=== PATIENT | female | born 1955 | race African-American/Black ===

== ENCOUNTER 2017-06-24 09:29 | Outpatient (CLI) | payer MEDICARE ==
--- NOTE | 2017-06-24 15:08 | Mammography Report ---
BILATERAL DIGITAL SCREENING MAMMOGRAM with CAD: 06/24/17 09:29:00 CLINICAL: Routine screening. COMPARISON: 05/03/16 FINDINGS: There are bilateral scattered areas of fibroglandular density.No mass, architectural distortion or suspicious calcifications. IMPRESSION: No mammographic evidence of malignancy. BI-RADS CATEGORY: 1 -- Negative RECOMMENDATION: Routine mammographic screening in one year. COMMENT: Patient follow-up letters are generated by our [employer] application.
== END 2017-06-24 09:30 | disposition home or self-care (01) ==
LOC: MAMMO 09:29
PROVIDERS: ATTEND Family Medicine
DX: Z12.31 Encounter for screening mammogram for malignant neoplasm of breast (principal)
CPT/HCPCS: 77067; G0202

== ENCOUNTER 2017-11-28 07:02 | Outpatient (CLI) | payer MEDICARE ==
--- NOTE | 2017-11-28 09:23 | Magnetic Resonance Report ---
MR CERVICAL SPINE WITHOUT CONTRAST History: Transient cerebral ischemia, radiculopathy. Technique: Multisequence, multiplanar MRI without contrast. Findings: The cervical spinal cord is normal size and signal intensity throughout. No central canal stenosis. Normal height and alignment of the cervical vertebral bodies. Normal bone marrow signal. There is mild diffuse disc desiccation without significant disc narrowing and mild diffuse facet arthropathy. C2-3: No significant abnormality. C3-4: No significant abnormality. C4-5: No significant abnormality with the disc. There is mild to moderate facet arthropathy, left greater than right. There is mild to moderate left neural foraminal narrowing estimated at 50%. C5-6: No significant abnormality with the disc. Mild bilateral facet arthropathy. C6-7: No significant abnormality with the disc. Mild bilateral facet arthropathy. C7-T1: No significant abnormality. IMPRESSION: Mild multilevel cervical spondylosis as described above. No large bulging disc or central canal stenosis.
== END 2017-11-28 07:03 | disposition home or self-care (01) ==
LOC: MRI 07:02
PROVIDERS: ATTEND Family Medicine
DX: M48.02 Spinal stenosis, cervical region (principal); M47.892 Other spondylosis, cervical region; M12.88 Other specific arthropathies, not elsewhere classified, other specified site; G45.9 Transient cerebral ischemic attack, unspecified; R20.0 Anesthesia of skin; R20.2 Paresthesia of skin
CPT/HCPCS: 72141

== ENCOUNTER 2018-10-05 00:37 | Inpatient (IN) | payer MEDICARE ==
[2018-10-05] MEDS ORDERED: NACL 0.9% 1000 ML 1,000 ML IV ONE (01:03)
--- NOTE | 2018-10-05 01:07 | Emergency Department Report ---
HPI - General Chief Complaint: Fever Time Seen by Provider: 10/05/18 00:55 - HPI HPI: 63-year-old female presents to the emergency department from home, with her daughter at bedside helping with some translation, with a complaint of a 4 day history of intermittent fever, intermittent chest tightness, some body aches. She says that at first they thought it was the flu. She denies any headache, shortness of breath, palpitations, nausea, vomiting, diarrhea, dysuria, cough. She tried some [place]sh[place] cough and cold medication. She has a past medical history of hypertension and elevated cholesterol. She is not a tobacco smoker. No recent travel or sick contacts at home. Her primary care physician is a Dr. Espino. ED Past Medical Hx - Past Medical History Previous Medical History?: Yes Hx Hypertension: Yes Hx Congestive Heart Failure: No Hx Diabetes: No Hx Asthma: No Hx COPD: No Additional medical history: Hypercholesterolemia - Surgical History Hx Cholecystectomy: Yes Additional Surgical History: Lumbar disc surgery - Social History Smoking Status: Unknown if ever smoked Substance Use Type: None - Medications Home Medications: Home Medications Medication Instructions Recorded Confirmed Last Taken Type Rosuvastatin Calcium [Crestor] 1 tab PO DAILY 09/09/13 11/05/17 Unknown History Lisinopril/Hydrochlorothiazide 20 mg DAILY 09/10/13 11/05/17 09/09/13 History [Zestoretic 20-12.5 mg] Travoprost [Travatan Z 0.004%] 1 drops DAILY 09/10/13 11/05/17 09/10/13 History one Aspirin [Aspirin TAB] 325 mg PO QDAY #30 tablet 11/05/17 Unknown Rx ED Review of Systems ROS: Stated complaint: FEVER Other details as noted in HPI Comment: All other systems reviewed and negative Constitutional: fever. denies: weakness Eyes: denies: eye pain, vision change ENT: denies: ear pain, throat pain Respiratory: denies: cough, shortness of breath Cardiovascular: denies: palpitations, edema Gastrointestinal: denies: abdominal pain, vomiting Genitourinary: denies: dysuria, discharge Musculoskeletal: myalgia. denies: back pain Skin: denies: rash, lesions Neurological: denies: headache, weakness Physical Exam - Physical Exam Vital Signs: Vital Signs 10/05/18 00:48 Temperature 99.9 F H Pulse Rate 113 H Respiratory 14 Rate Blood Pressure 157/73 O2 Sat by Pulse 98 Oximetry Physical Exam: GENERAL: The patient is well-developed well-nourished. HEENT: Normocephalic. Atraumatic. Patient has moist mucous membranes. EYES: Extraocular motions are intact. Pupils are equal and reactive to light bilaterally. NECK: Supple. Trachea is midline. CHEST/LUNGS: Clear to auscultation. There is no respiratory distress noted. There is some reproducible left-sided chest pain to palpation. HEART/CARDIOVASCULAR: Regular. There is mild tachycardia. There is no obvious murmur. ABDOMEN: Abdomen is soft, nontender. Patient has normal bowel sounds. There is no abdominal distention. SKIN: Skin is warm and dry. NEURO: The patient is awake, alert, and oriented. The patient is cooperative. The patient has no focal neurologic deficits. The patient has normal speech. MUSCULOSKELETAL: There is some reproducible tenderness to palpation to the left lateral/posterior hip. Positive left straight leg raise test. There is no limitation range of motion. There is no evidence of acute injury. BACK: No midline thoracic or lumbar tenderness to palpation, step-off or deformity. ED Course Vital Signs 10/05/18 00:48 Temperature 99.9 F H Pulse Rate 113 H Respiratory 14 Rate Blood Pressure 157/73 O2 Sat by Pulse 98 Oximetry ED Medical Decision Making - Lab Data Result diagrams: 10/05/18 01:12 10/05/18 01:12 - EKG Data -: EKG Interpreted by Me EKG shows normal: sinus rhythm, axis, intervals, QRS complexes, ST-T waves Rate: tachycardia (103 bpm) - EKG Data When compared to previous EKG there are: previous EKG unavailable Interpretation: other (sinus tachycardia. No ST elevation [place]) - Radiology Data Radiology results: report reviewed, image reviewed interpreted by me: Chest x-ray does not show any pneumothorax, pleural effusion, pneumonia or obvious focal consolidation. X-ray of the left hip does not show any fracture, dislocation or any acute process. PROCEDURE: CT ANGIO CHEST TECHNIQUE: Computerized axial tomographic angiography of the chest and pulmonary arteries was performed after the IV injection of iodinated nonionic contrast. The image data was postprocessed using maximum intensity projection (MIP) and 2-dimensional multiplanar reformatted (MPR) techniques. The examination is specifically tailored to the evaluation of the pulmonary arteries per clinical request. HISTORY: Short of breath 786.09, chest pain 786.50, CP, elevated dimer COMPARISON: No prior studies are available for comparison. FINDINGS: Heart and pericardium: Normal. Thoracic aorta: There is no thoracic aortic aneurysm or dissection.. Pulmonary vasculature: There is no pulmonary embolism.. Lymph nodes: No enlarged thoracic lymph nodes. Lungs: Lungs are expanded. There are no infiltrates.. Pleural space: No effusion, thickening, or pneumothorax. Musculoskeletal structures: No significant abnormality. Upper abdominal structures: No significant abnormality. IMPRESSION: There is no pulmonary embolism.. Transcribed By: CO Dictated By: ASHUTOSH BARCENAS MD Electronically Authenticated By: ASHUTOSH BARCENAS MD Signed Date/Time: 10/05/18321 - Medical Decision Making This patient presents with a four-day history of some left-sided chest tightness, left hip pain, intermittent fevers and some tachycardia. She has a past medical history of hypertension and hyperlipidemia. EKG does not show any signs of ST elevation WI. Chest x-ray does not show any focal consolidation, pneumothorax, pleural effusions, pneumonia, or any other acute process. X-ray of the left hip also does not show any fracture, dislocation or any acute proces s. Patient's abdomen mostly unremarkable thus far including a negative troponin. She did have an elevated and equivocal d-dimer. For this reason a CT angiography of the chest was done that did not show any pulmonary embolism. Patient was given IV fluid resuscitation that did help with the tachycardia. However since the patient continues to have some left-sided chest tightness, and she has not had a full cardiac workup before, she will be admitted to the hospital for further evaluation and treatment. The patient was accepted for admission by the hospitalist, Dr. Queen. - Differential Diagnosis WI, PE, hyperthyroidism, sciatica Critical Care Time: No Critical care attestation.: If time is entered above; I have spent that time in minutes in the direct care of this critically ill patient, excluding procedure time. ED Disposition Clinical Impression: Acute chest pain, Left hip pain Hypertension Qualifiers: Hypertension type: essential hypertension Qualified Code(s): I10 - Essential (primary) hypertension Disposition: OP ADMIT IP TO THIS HOSP Is pt being admited?: Yes Condition: Stable Instructions: Chest Pain (ED), Hypertension (ED) Referrals: MAUDE LYON MD [Primary Care Provider] - 3-5 Days Time of Disposition: 04:53
[2018-10-05 01:36] LABS: Bilirubin,Urine NEG (Negative); Blood,Urine NEG (Negative); Color,Urine Yellow (Yellow); Mucus,Urine FEW /HPF; Protein,Urine <15 mg/dL mg/dL (Negative); Urobilinogen,Urine < 2.0 mg/dL (<2.0)
[2018-10-05 01:50] LABS: Basophils % (Auto) 0.2 % (0.0-1.8); Eosinophils % (Auto) 0.1 % (0.0-4.3); Hematocrit 40.4 % (30.3-42.9); Hemoglobin 13.6 gm/dl (10.1-14.3); Lymphocytes # (Auto) 1.5 K/mm3 (1.2-5.4); Lymphocytes % (Auto) 14.8 % (13.4-35.0); Mean Corpuscular HGB Conc 34 % (30-34); Mean Corpuscular Volume 87 fl (79-97); Monocytes # (Auto) 0.7 K/mm3 (0.0-0.8); Platelet Count 244 K/mm3 (140-440); Red Blood Count 4.62 M/mm3 (3.65-5.03); Red Cell Distribution Width 12.6 % (13.2-15.2)
[2018-10-05 01:59] LABS: Albumin 3.6 g/dL (3.9-5); BUN/Creatinine Ratio 12; Blood Urea Nitrogen 6 mg/dL (7-17); Calcium 8.9 mg/dL (8.4-10.2); Hemolysis Index 333
--- NOTE | 2018-10-05 01:59 | XRay Report ---
FINAL REPORT PROCEDURE: XR CHEST ROUTINE 2V TECHNIQUE: PA and lateral chest radiographs were obtained. CPT 27976 HISTORY: Chest Pain COMPARISON: No prior studies are available for comparison. FINDINGS: Heart: Normal. Mediastinum/Vessels: Normal. Lungs/Pleural space: Normal. Bony thorax: No acute osseous abnormality. Other: IMPRESSION: Normal examination.
[2018-10-05 02:03] LABS: Alanine Aminotransferase 90 units/L (7-56)
--- NOTE | 2018-10-05 02:33 | XRay Report ---
FINAL REPORT PROCEDURE: XR HIP 2-3V LT TECHNIQUE: LEFT hip radiographs, AP and lateral views. HISTORY: left hip pain COMPARISON: No prior studies are available for comparison. FINDINGS: Fracture (s) and/or Dislocation(s): None . Joint space(s): Normal . Soft tissues: Normal . Bone mineralization: Normal . Foreign bodies: None . IMPRESSION: Normal Examination.
--- NOTE | 2018-10-05 03:22 | Cat Scan Report ---
FINAL REPORT PROCEDURE: CT ANGIO CHEST TECHNIQUE: Computerized axial tomographic angiography of the chest and pulmonary arteries was perfor med after the IV injection of iodinated nonionic contrast. The image data was postprocessed using max imum intensity projection (MIP) and 2-dimensional multiplanar reformatted (MPR) techniques. The exami nation is specifically tailored to the evaluation of the pulmonary arteries per clinical request. HISTORY: Short of breath 786.09, chest pain 786.50, CP, elevated dimer COMPARISON: No prior studies are available for comparison. FINDINGS: Heart and pericardium: Normal. Thoracic aorta: There is no thoracic aortic aneurysm or dissection.. Pulmonary vasculature: There is no pulmonary embolism.. Lymph nodes: No enlarged thoracic lymph nodes. Lungs: Lungs are expanded. There are no infiltrates.. Pleural space: No effusion, thickening, or pneumothorax. Musculoskeletal structures: No significant abnormality. Upper abdominal structures: No significant abnormality. IMPRESSION: There is no pulmonary embolism..
[2018-10-05] MEDS ORDERED: KIONEX PO ONE (04:22)
[2018-10-05] MEDS ORDERED: ZOFRAN IV PRN (05:56)
[2018-10-05] MEDS ORDERED: NITROSTAT SL PRN (05:59)
[2018-10-05] MEDS: NITRO-BID 2% TP SCH ×4 (06:40→17:38)
[2018-10-05 06:47] LABS: Creatine Kinase MB < 1.0 ng/mL (0.0-4.0)
--- NOTE | 2018-10-05 07:37 | History and Physical Report ---
CHIEF COMPLAINT: Chest pain. OTHER COMPLAINT: Includes fever. HISTORY OF PRESENTING ILLNESS: The patient is a 63-year-old female who has been having tightness in the chest going on for over 4 days. There is history of associated fever and tachycardia. The patient said initially she thought she was having flu. There was no history of headache. No history of shortness of breath, palpitation, nausea or vomiting. Also, the patient denied history of abdominal pain ,diarrhea and cough. She states she took some [place]sh[place], cough and cold medication, but continued to have tightness in the chest and presented for further evaluation. PAST MEDICAL HISTORY: Pertinent for hypertension. Also, the patient has past history of hypercholesterolemia. PAST SURGICAL HISTORY: Pertinent for cholecystectomy and lumbar disk surgery. FAMILY HISTORY: Family history is noncontributory. SOCIAL HISTORY: The patient does not smoke, does not drink alcohol and does not use illicit drugs. MEDICATIONS: The patient is on Crestor one tablet by mouth daily, dose unknown. Also, the patient is on lisinopril/hydrochlorothiazide 20/12.5 mg one by mouth daily and travoprost eye drop 0.004% one drop daily. The particular eye is not known. The patient is also on aspirin 325 mg by mouth daily. ALLERGIES: There are no known drug allergies. REVIEW OF SYSTEMS: CONSTITUTIONAL: There is fever, but no chills, no diaphoresis. HEENT: There is no headache or sore throat. CARDIOVASCULAR SYSTEM: Chest pain is present. No orthopnea. RESPIRATORY SYSTEM: There is no shortness of breath or cough. GASTROINTESTINAL SYSTEM: There is no nausea, no vomiting, no diarrhea or constipation. NEUROLOGICAL SYSTEM: There is no numbness, no dizziness, no altered mental status. MUSCULOSKELETAL SYSTEM: Back pain is noted, no joint swelling. DERMATOLOGICAL SYSTEM: There is no skin rash or itching. GENITOURINARY SYSTEM: There is no dysuria, hematuria or flank pain. Rest of system review is normal. PHYSICAL EXAMINATION: GENERAL: At the time of exam, the patient was found to be alert, oriented x 3 and not in acute distress. VITAL SIGNS: At the initial time of presentation show temperature of 99.9 degrees Fahrenheit, pulse of 113, respiration 14, blood pressure 157/73, O2 sat of 98% on room air. HEENT: Showed pupils to be equal, round, reactive to light and accommodating. Extraocular muscles are intact. NECK: Neck is supple with no JVD or carotid bruit. CARDIOVASCULAR SYSTEM: Showed normal first and second heart sounds with no gallops or murmur. RESPIRATORY SYSTEM: Show good air entry on both sides of the lung with no abnormal breath sounds. GASTROINTESTINAL SYSTEM: Show abdomen to be full, soft, nontender with no organomegaly or rigidity. NEUROLOGICAL: Neuro exam shows no focal deficit. MUSCULOSKELETAL SYSTEM: Show no joint swelling or tenderness. DERMATOLOGICAL SYSTEM: Show no skin rash. GENITOURINARY SYSTEM: Showing no costovertebral angle tenderness. PERTINENT LABORATORY DATA AND IMAGING STUDIES: The patient had chest x-ray done that shows no acute cardiopulmonary lesion. Also the patient had x-ray of the hip done that shows normal examination. The patient had CT angiogram of the chest done because of elevated D-dimer with chest pain that shows no pulmonary embolism. The patient's lab results shows unremarkable CBC except for elevated segmented neutrophil of 77.9% on CBC differential. The patient's D-dimer is high with a value of 693.[address] angiogram order and the patient's chemistry showed low sodium of 133 with elevated potassium level of 5.4 and low chloride level of 96.9 with liver transaminases showing elevated AST of 97 with elevated ALT of 90. The rest of the patient's chemistry was unremarkable and troponin level came back unremarkable. Urinalysis was unremarkable. DIAGNOSES: 1. Chest pain, rule out myocardial infarction. 2. Hyperkalemia. PLAN OF CARE: 1. The patient will be admitted to telemetry. 2. The patient will have cardiac enzymes involving troponin, total CK and CK-MB check q. 6 hours x2 more levels. 3. The patient will be n.p.o. for Lexiscan stress test this morning. 4. The patient will have basic metabolic panel check sometime this morning to monitor the treatment for potassium that was done in the Emergency Room. 5. The patient will be on aspirin 325 mg by mouth daily and will be on Tylenol 650 mg by mouth every 4 hours for fever and headache. 6. The patient will be on heparin 5000 units subQ q. 12 hours. 7. The patient will be on morphine 2 mg IV every 3 hours as needed for pain. 8. The patient will be on nitroglycerin paste half-inch to anterior chest wall q.i.d. and Nitrostat 0.4 mg every 5 minutes as needed for breakthrough chest pain. 9. The patient will be on Zofran 4 mg IV every 8 hours as needed for nausea and vomiting. 10. The patient will be on oxygen via nasal cannula 2L per minute. JOB# [id number] OCN/NTS MTDD
[2018-10-05 08:13] LABS: BUN/Creatinine Ratio 13; Blood Urea Nitrogen 5 mg/dL (7-17); Calcium 8.5 mg/dL (8.4-10.2); Hemolysis Index 3
--- NOTE | 2018-10-05 09:32 | Event Note ---
Date: 10/05/18 Patient presents with chest pain. I have seen and examined her. For stress test tomorrow.
[2018-10-05] MEDS: ASPIRIN PO SCH (12:02)
[2018-10-05] MEDS: HEPARIN SUB-Q SCH ×2 (12:03→21:38)
[2018-10-05 14:29] LABS: Creatine Kinase MB 2.7 ng/mL (0.0-4.0)
[2018-10-05] MEDS: MORPHINE IV PRN (21:37)
[2018-10-06 06:04] LABS: Alanine Aminotransferase 52 units/L (7-56); Albumin 3.4 g/dL (3.9-5); BUN/Creatinine Ratio 16; Blood Urea Nitrogen 8 mg/dL (7-17); Calcium 8.3 mg/dL (8.4-10.2); Hemolysis Index 6
[2018-10-06] MEDS: NITRO-BID 2% TP SCH ×4 (06:07→17:21)
[2018-10-06] MEDS ORDERED: LEXISCAN IV ONE ×2 (09:28→09:29)
[2018-10-06] MEDS ORDERED: NACL 0.9% 500 ML 500 ML ONE (11:08)
[2018-10-06] MEDS: ASPIRIN PO SCH (11:22)
[2018-10-06] MEDS: KCL 10MEQ/100ML 10 MEQ/100 ML BAG IV SCH ×2 (11:22→13:19)
[2018-10-06] MEDS: HEPARIN SUB-Q SCH ×2 (11:23→22:20)
[2018-10-06] MEDS ORDERED: NON-FORMULARY (Lisinopril/Hydrochlorothiazide [Zestoretic 20-12.5 Mg] 20 MG) PO SCH (12:30)
[2018-10-06] MEDS ORDERED: ROSUVASTATIN CALCIUM PO SCH (12:30)
--- NOTE | 2018-10-06 12:50 | Progress Note ---
Assessment and Plan Assessment and plan: Chest pain, Now resolved Stress test neg Fever. UA neg, CXR neg Obtain Blood cultures Hold off Antibiotcs If fever persists will start Antibiotics Hypertension. Monitor BP Hyperlipidemia Dispo:Poss dc in am, if no more fever. History Interval history: Chest pain resolved Fever of 100.1 Hospitalist Physical - Physical exam Narrative exam: EN: Not in acute distress, lying in bed HEENT: Normocephalic, atraumatic, Neck: supple, No JVD Lungs: Clear to auscultation, bilaterally, Heart:S1 and S2 regular, no murmurs, rubs or gallop, Abd:soft, non tender, non distended, normal bowel sounds Ext: No edema, no clubbing or cyanosis Neuro: Awake,alert, oriented x 3, No focal signs - Constitutional Vitals: Temp Pulse Resp BP Pulse Ox 100.1 F H 85 18 154/80 95 10/06/18 11:59 10/06/18 11:59 10/06/18 11:59 10/06/18 11:59 10/06/18 11:59 Results - Labs CBC & Chem 7: 10/05/18 01:12 10/06/18 05:10 Labs: Laboratory Last Values WBC 10.3 K/mm3 (4.5-11.0) 10/05/18 01:12 RBC 4.62 M/mm3 (3.65-5.03) 10/05/18 01:12 Hgb 13.6 gm/dl (10.1-14.3) 10/05/18 01:12 Hct 40.4 % (30.3-42.9) 10/05/18 01:12 MCV 87 fl (79-97) 10/05/18 01:12 MCH 30 pg (28-32) 10/05/18 01:12 MCHC 34 % (30-34) 10/05/18 01:12 RDW 12.6 % (13.2-15.2) L 10/05/18 01:12 Plt Count 244 K/mm3 (140-440) 10/05/18 01:12 Lymph % (Auto) 14.8 % (13.4-35.0) 10/05/18 01:12 [place] % (Auto) 7.0 % (0.0-7.3) 10/05/18 01:12 Eos % (Auto) 0.1 % (0.0-4.3) 10/05/18 01:12 Baso % (Auto) 0.2 % (0.0-1.8) 10/05/18 01:12 Lymph # 1.5 K/mm3 (1.2-5.4) 10/05/18 01:12 [place] # 0.7 K/mm3 (0.0-0.8) 10/05/18 01:12 Eos # 0.0 K/mm3 (0.0-0.4) 10/05/18 01:12 Baso # 0.0 K/mm3 (0.0-0.1) 10/05/18 01:12 Seg Neutrophils % 77.9 % (40.0-70.0) H 10/05/18 01:12 Seg Neutrophils # 8.0 K/mm3 (1.8-7.7) H 10/05/18 01:12 D-Dimer 693.81 ng/mlDDU (0-234) H 10/05/18 01:12 Sodium 137 mmol/L (137-145) 10/06/18 05:10 Potassium 3.1 mmol/L (3.6-5.0) L 10/06/18 05:10 Chloride 99.4 mmol/L (98-107) 10/06/18 05:10 Carbon Dioxide 26 mmol/L (22-30) 10/06/18 05:10 Anion Gap 15 mmol/L 10/06/18 05:10 BUN 8 mg/dL (7-17) 10/06/18 05:10 Creatinine 0.5 mg/dL (0.7-1.2) L 10/06/18 05:10 Estimated GFR > 60 ml/min 10/06/18 05:10 BUN/Creatinine Ratio 16 % 10/06/18 05:10 Glucose 108 mg/dL (65-100) H 10/06/18 05:10 Lactic Acid 0.90 mmol/L (0.7-2.0) 10/05/18 01:12 Calcium 8.3 mg/dL (8.4-10.2) L 10/06/18 05:10 Total Bilirubin 0.70 mg/dL (0.1-1.2) 10/06/18 05:10 AST 32 units/L (5-40) 10/06/18 05:10 ALT 52 units/L (7-56) 10/06/18 05:10 Alkaline Phosphatase 94 units/L (35-129) 10/06/18 05:10 Total Creatine Kinase 162 units/L (30-135) H 10/05/18 13:23 CK-MB (CK-2) 2.7 ng/mL (0.0-4.0) 10/05/18 13:23 CK-MB (CK-2) Rel Index 1.6 (0-4) 10/05/18 13:23 Troponin T < 0.010 ng/mL (0.00-0.029) 10/05/18 13:23 Total Protein 6.9 g/dL (6.3-8.2) 10/06/18 05:10 Albumin 3.4 g/dL (3.9-5) L 10/06/18 05:10 Albumin/Globulin Ratio 1.0 % 10/06/18 05:10 TSH 0.591 mlU/mL (0.270-4.200) 10/05/18 01:12 Urine Color Yellow (Yellow) 10/05/18 01:03 Urine Turbidity Clear (Clear) 10/05/18 01:03 Urine pH 6.0 (5.0-7.0) 10/05/18 01:03 Ur Specific [place] 1.004 (1.003-1.030) 10/05/18 01:03 Urine Protein <15 mg/dl mg/dL (Negative) 10/05/18 01:03 Urine Glucose (UA) Neg mg/dL (Negative) 10/05/18 01:03 Urine Ketones 20 mg/dL (Negative) 10/05/18 01:03 Urine Blood Neg (Negative) 10/05/18 01:03 Urine Nitrite Neg (Negative) 10/05/18 01:03 Urine Bilirubin Neg (Negative) 10/05/18 01:03 Urine Urobilinogen < 2.0 mg/dL (<2.0) 10/05/18 01:03 Ur Leukocyte Esterase Neg (Negative) 10/05/18 01:03 Urine WBC (Auto) 1.0 /HPF (0.0-6.0) 10/05/18 01:03 Urine RBC (Auto) 1.0 /HPF (0.0-6.0) 10/05/18 01:03 Urine Mucus Few /HPF 10/05/18 01:03 Blood Type B POSITIVE 10/05/18 01:12 Antibody Screen Negative 10/05/18 01:12
[2018-10-06] MEDS ORDERED: ASPIRIN PO SCH (13:00)
[2018-10-06] MEDS: ZESTRIL PO SCH (16:41)
[2018-10-06] MEDS: HCTZ PO SCH (16:41)
--- NOTE | 2018-10-06 20:04 | Treadmill Report ---
SINGLE ISOTOPE DUAL STUDY MYOCARDIAL PERFUSION SCAN REPORT REFERRING PHYSICIAN: Amol Queen MD Se[facility] and [facility] DESCRIPTION OF THE PROCEDURE: The patient received 10 mCi of technetium 99m Myoview intravenously under resting conditions. Resting myocardial perfusion scan was done. Subsequently, the patient underwent Lexiscan stress test as per the protocol. During Lexiscan stress, the patient received 28 mCi of technetium 99m Myoview intravenously. After 30-60 minutes, post stress images were done. Computerized reconstruction images were performed for analysis. The post-stress images did not reveal any perfusion abnormality. Cinematic display of the gated study revealed hyperdynamic left ventricle with ejection fraction of 83%. The resting images were also normal. CONCLUSION: 1. No perfusion abnormality of the left ventricular myocardium was demonstrated in the resting as well as stress images obtained after the patient underwent Lexiscan stress test. 2. No wall motion abnormality. 3. Hyperdynamic left ventricle with left ventricular ejection fraction of 83%. JOB# [id number] [facility]
[2018-10-07] MEDS: MORPHINE IV PRN (05:09)
[2018-10-07] MEDS: NITRO-BID 2% TP SCH ×3 (05:12→14:33)
[2018-10-07 07:11] LABS: BUN/Creatinine Ratio 14; Blood Urea Nitrogen 7 mg/dL (7-17); Calcium 8.7 mg/dL (8.4-10.2); Hemolysis Index 13
[2018-10-07] MEDS: HCTZ PO SCH (09:20)
[2018-10-07] MEDS: TYLENOL PO PRN ×2 (09:20→17:32)
[2018-10-07] MEDS: ASPIRIN PO SCH (09:22)
[2018-10-07] MEDS: HEPARIN SUB-Q SCH ×2 (09:22→21:29)
[2018-10-07] MEDS: ZESTRIL PO SCH (09:23)
--- NOTE | 2018-10-07 16:11 | Consultation ---
History of Present Illness - Reason for Consult Consult date: 10/07/18 fever Requesting physician: CHIQUI TERRY - History of Present Illness 63 y/o female w/o medical history admitted on 10/05/2018 due to 4-day history of intermittent fever, chills, intermittent chest tightness, malaise and 2-day history of right knee edema and tenderness. Patient denies any recent falls or injury. She stays home. Denies sick contacts. She denies any headache, shortness of breath, palpitations, nausea, vomiting, diarrhea, dysuria, cough. No recent travel. Patient is originally from [place], came to [facility] in 1993. Denies tob, ETOH or drugs. In the ED, temp 99.9--> 100.1, HR 113, R 14, BP 157/73, O2 sat 98%. WBC 10.3. Hg 13.6. Plat 244. K 5.4. Creat 0.4. Lactate 0.9. AST 97. ALT 90. UA negative. CTA negative for PE. CXR neg. Blood culture 11/01/2018 negative so far. Urine culture 10/05/2018 <10k. Review of Systems: General: + fever, + chills, nightsweats, unintentional weight change, or change in appetite, +poor appetite Cutaneous: no rash, pruritus Head: no headaches or injury Eyes: no changes in vision, eye pain, double vision Ears: no ear pain, ear discharge, ringing or hearing loss Nose: no nose bleeding, stuffiness Mouth & throat: no bleeding gums, no horseness, no dental problems, or swollen glands Neck: no pain, node enlargement/lumps, tyroid enlargement or tenderness Respiratory: no cough, wheezing, sputum, hemoptysis, pleuritic chest pain Cardiovascular: no chest pain, leg edema, cyanosis, FLORES, orthopnea Musculoskeletal: no decreased joint motion, muscle aches, +right knee edema, tenderness Gastrointestinal: no nausea, vomiting, hematemesis, diarrhea, constipation, melena, bright red blood in stools, fecal incontinence, jaundice Genitourinary/Reproductive: no frequent urination, dysuria, hematuria, incontinence Neurogical: no seizures, no headaches, no weakness, no paresthesias, no loss of speech or vision; no memory loss, no vertigo, no tremors, no numbness Psychiatric: stable mood; no excessive anxiety, sadness or moodiness Past History Past Surgical History: No surgical history Social history: lives with family. denies: smoking, IV drug use Family history: no significant family history Medications and Allergies Allergies Allergy/AdvReac Type Severity Reaction Status Date / Time No Known Allergies Allergy Unverified 09/09/13 16:03 Home Medications Medication Instructions Recorded Confirmed Last Taken Type Rosuvastatin Calcium [Crestor] 1 tab PO DAILY 09/09/13 10/05/18 Unknown History Lisinopril/Hydrochlorothiazide 20 mg DAILY 09/10/13 10/05/18 09/09/13 History [Zestoretic 20-12.5 mg] Travoprost [Travatan Z 0.004%] 1 drops DAILY 09/10/13 10/05/18 09/10/13 History one Aspirin [Aspirin TAB] 325 mg PO QDAY #30 tablet 11/05/17 10/05/18 Unknown Rx Active Meds: Active Medications Acetaminophen (Tylenol) 650 mg PO Q4H PRN PRN Reason: Headache Last Admin: 10/07/18 09:20 Dose: 650 mg Documented by: Aspirin (Aspirin) 325 mg PO QDAY [facility] Last Admin: 10/07/18 09:22 Dose: 325 mg Documented by: Atorvastatin Calcium (Lipitor) 40 mg PO QHS [facility] Last Admin: 10/06/18 22:19 Dose: 40 mg Documented by: Heparin Sodium (Porcine) (Heparin) 5,000 unit SUB-Q Q12HR [facility] Last Admin: 10/07/18 09:22 Dose: 5,000 unit Documented by: Hydrochlorothiazide (Hctz) 12.5 mg PO QDAY [facility] Last Admin: 10/07/18 09:20 Dose: 12.5 mg Documented by: Ceftriaxone Sodium (Rocephin/Ns 1 Gm/50 Ml) 1 gm in 50 mls @ 100 mls/hr IV Q24HR [facility]; Protocol Lisinopril (Zestril) 20 mg PO QDAY [facility] Last Admin: 10/07/18 09:23 Dose: 20 mg Documented by: Morphine Sulfate (Morphine) 2 mg IV Q3H PRN PRN Reason: Pain, Moderate (4-6) Last Admin: 10/07/18 05:09 Dose: 2 mg Documented by: Nitroglycerin (Nitrostat) 0.4 mg SL .Q5MIN PRN PRN Reason: Chest Pain Nitroglycerin (Nitro-Bid 2%) 0.5 inch TP QIDNTG [facility]; Protocol Last Admin: 10/07/18 09:22 Dose: 0.5 inch Documented by: Ondansetron HCl (Zofran) 4 mg IV Q8H PRN PRN Reason: Nausea And Vomiting Physical Examination - Physical Exam Narrative exam: General appearance: Alert in NAD, conversant, anxious Eyes: anicteric sclerae, moist conjunctivae; no lid-lag; PERRLA HENT: Atraumatic; oropharynx clear with moist mucous membranes and no mucosal ulcerations/no oral thrush; normal hard and soft palate. Normal external ears. Neck: Trachea midline; supple, no thyromegaly or lymphadenopathy Lungs: CTA, with normal respiratory effort and no intercostal retractions CV: RRR, no murmurs Abdomen: Soft, non-tender; no masses or hepatosplenomegaly Extremities: +right knee edema, tenderness and heat Skin: Normal temperature, turgor and texture; no rash, ulcers or subcutaneous nodules Psych: Appropriate affect, alert and oriented to person, place and time. Neuro: alert and oriented x 3. Moving all extermities - Constitutional Vitals: Vital Signs Temp Pulse Resp BP Pulse Ox 102.7 F H 100 H 18 144/67 91 10/07/18 08:49 10/07/18 08:49 10/07/18 08:49 10/07/18 08:49 10/07/18 08:49 Temperature -Last 24 Hours Temperature 102.7 F Temperature 100.6 F Temperature 99.0 F Temperature 99.4 F Temperature 99.1 F Results - Labs CBC & Chem 7: 10/05/18 01:12 10/07/18 06:17 Labs: Abnormal lab results 10/07/18 Range/Units 06:17 Potassium 3.4 L (3.6-5.0) mmol/L Creatinine 0.5 L (0.7-1.2) mg/dL Glucose 130 H (65-100) mg/dL Assessment and Plan Cultures: Blood culture Urine culture Sputum culture Assessment: 63 y/o female w/o medical history admitted on 10/05/2018 due to 4-day history of intermittent fever, chills, intermittent chest tightness, malaise and 2-day history of right knee edema and tenderness: 1) SIRS versus Sepsis: Present on admission, manifested by fever, tachycardia. Unclear etiology, likely right knee septic arthritis. Other possibilities influenza, mononucleosis, viral hepatitis. - UA negative. CTA negative for PE. CXR neg. Blood culture 11/01/2018 negative so far. Urine culture 10/05/2018 <10k. 2) Right knee edema and pain associated with fever: should r/o septic arthritis, others inflammatory arthritis, gout. 3) Elevated LFTs: from sepsis or secondary to viral infection. Other cholecystitis (denies abdominal pain) Recommendations: - right knee XR - Ortho consult may need knee aspiration, send fluid for cell count, diff, crystals and culture - Liver US - Viral hepatitis panel - EBV panel / CMV panel - follow-up blood cultures - obtain C-reactive protein (CRP), uric acid. - check influenza rapid antigen - continue ceftriaxone for now - add vancomycin until septic arthritis is r/o - add tamiflu until flu is r/o Will follow. Salma Roach MD Infectious Diseases [employer] [facility] [phone] O [phone]
[2018-10-07] MEDS ORDERED: .VANCOMYCIN VIAL 1,000 MG in NACL 0.9% 100 ML IV SCH (17:00)
[2018-10-07] MEDS ORDERED: VANCOMYCIN/NS 1 GM/250 ML 1 GM/250 ML BAG IV ONE (17:00)
--- NOTE | 2018-10-07 17:13 | XRay Report ---
FINAL REPORT EXAM: XR KNEE 3V RT HISTORY: severe right knee pain and edema eval for effusion TECHNIQUE: Three views of the right knee PRIORS: None. FINDINGS: There is large joint effusion present at the suprapatellar joint space. Skeletal structures are osteo penic. No acute fracture is identified. There are degenerative changes at the patellofemoral joint wi th joint space narrowing and marginal osteophytes IMPRESSION: Large joint effusion Osteopenia Degenerative changes at the patellofemoral joint
[2018-10-07] MEDS: ROCEPHIN/NS 1 GM/50 ML 1 GM/50 ML BAG IV SCH (17:34)
[2018-10-07 18:13] LABS: Hepatitis B Surface Antigen Non-Reactive (Negative); Hepatitis C Virus Antibody Non-Reactive (NonReactive)
[2018-10-07] MEDS: TAMIFLU PO SCH (21:30)
[2018-10-08] MEDS: TYLENOL PO PRN ×2 (06:41→22:16)
[2018-10-08] MEDS: NITRO-BID 2% TP SCH ×6 (06:41→20:13)
--- NOTE | 2018-10-08 08:52 | Ultrasound Report ---
ULTRASOUND ABDOMEN LIMITED: TECHNIQUE: Transabdominal ultrasound with color Doppler interrogation. HISTORY: Right upper quadrant pain, evaluate for cholecystitis. COMPARISON: CTA chest dated 10/05/18. FINDINGS: LIVER: Normal. BILIARY SYSTEM: The gallbladder is not identified on ultrasound or CTA chest. This presumably represents previous cholecystectomy. Otherwise, the gallbladder is contracted. The CBD measures 3.8 mm. PANCREAS: Normal. RIGHT KIDNEY: Normal. PROXIMAL AORTA: Normal. ASCITES: None. Trace right pleural effusion is noted. IMPRESSION: The gallbladder is not identified as described. Assumed cholecystectomy. No biliary dilatation is appreciated Trace right pleural effusion.
[2018-10-08] MEDS: ROCEPHIN/NS 1 GM/50 ML 1 GM/50 ML BAG IV SCH (10:27)
[2018-10-08] MEDS: HCTZ PO SCH (10:28)
[2018-10-08] MEDS: ZESTRIL PO SCH (10:29)
[2018-10-08] MEDS: ASPIRIN PO SCH (10:29)
[2018-10-08] MEDS: TAMIFLU PO SCH ×2 (10:29→22:17)
[2018-10-08] MEDS: HEPARIN SUB-Q SCH ×2 (10:31→22:17)
--- NOTE | 2018-10-08 11:00 | Progress Note ---
Assessment and Plan Cultures: Blood culture 10/06/2018 no growth so far Urine culture 10/05/2018 <10 mixed Assessment: 63 y/o female w/o medical history admitted on 10/05/2018 due to 4-day history of intermittent fever, chills, intermittent chest tightness, malaise and 2-day history of right knee edema and tenderness: 1) Sepsis: still high fever. Likely right knee septic arthritis. Other possibilities influenza - UA negative. CTA negative for PE. CXR neg. Blood culture 11/01/2018 negative so far. Urine culture 10/05/2018 <10k. 2) Right knee edema and pain associated with fever: most likely septic arthriti s, less likely inflammatory arthritis, gout. - Right XR showed large effusion - CRP 12 - Uric acid low 3) Elevated LFTs: resolved; from sepsis or secondary to viral infection. Other cholecystitis (denies abdominal pain). Resolved. US showed GB absent no dilation. Viral hep panel non reactive. Recommendations: - Ortho consult for aspiration of right knee, please send synovial fluid for cell count, diff, crystals, Gram stain and culture. I personally alerted Micro lab and they received specimen. - follow-up blood cultures - check influenza rapid antigen - pending - continue ceftriaxone and vancomycin until septic arthritis is r/o Will follow. Salma Roach MD Infectious Diseases [employer] [facility] M [phone] O [phone] Subjective Date of service: 10/08/18 Principal diagnosis: fever Interval history: Patient feels the same still c/o severe right knee pain, + fever 103 Review of Systems: General: + fever, +chills, nightsweats, unintentional weight change, or change in appetite Cutaneous: no rash, pruritus Musculoskeletal: +right knee edema pain Gastrointestinal: no nausea, vomiting, hematemesis, diarrhea, constipation, melena, bright red blood in stools, fecal incontinence, jaundice Objective - Exam Narrative Exam: General appearance: Alert in NAD, conversant, anxious Eyes: anicteric sclerae, moist conjunctivae; no lid-lag; PERRLA HENT: Atraumatic; oropharynx clear with moist mucous membranes and no mucosal ulcerations/no oral thrush; normal hard and soft palate. Normal external ears. Neck: Trachea midline; supple, no thyromegaly or lymphadenopathy Lungs: CTA, with normal respiratory effort and no intercostal retractions CV: RRR, no murmurs Abdomen: Soft, non-tender; no masses or hepatosplenomegaly Extremities: +right knee edema, tenderness and heat Skin: Normal temperature, turgor and texture; no rash, ulcers or subcutaneous nodules Psych: Appropriate affect, alert and oriented to person, place and time. Neuro: alert and oriented x 3. Moving all extermities - Constitutional Vitals: Vital Signs Temp Pulse Resp BP Pulse Ox 98.2 F 76 18 122/58 96 10/08/18 09:44 10/08/18 10:48 10/08/18 09:43 10/08/18 10:48 10/08/18 09:43 Temperature -Last 24 Hours Temperature 98.2 F Temperature 100.3 F Temperature 98.4 F Temperature 99.1 F Temperature 103.0 F Temperature 101.0 F Temperature 99.0 F - Labs CBC & Chem 7: 10/05/18 01:12 10/07/18 06:17 Labs: Abnormal lab results 10/07/18 10/07/18 Range/Units 17:12 17:12 Uric Acid 3.3 L (3.5-7.6) mg/dL C-Reactive Protein 12.80 H (0.00-1.30) mg/dL
--- NOTE | 2018-10-08 12:18 | Consultation ---
History of Present Illness - [facility] Consult date: 10/08/18 Consult reason: joint pain History of present illness: 63-year-old female who complains of right knee pain and swelling for the past 1 week she denies a history of trauma states the pain came on gradually got worse over time patient states it difficult to bear weight on the right leg.Patient does have a history of previous left knee pain and swelling for which she underwent some type of aspiration and injection a year ago in [place] Past History Past Surgical History: No surgical history Social history: lives with family. denies: smoking, IV drug use Family history: no significant family history Medications and Allergies Allergies Allergy/AdvReac Type Severity Reaction Status Date / Time No Known Allergies Allergy Unverified 09/09/13 16:03 Home Medications Medication Instructions Recorded Confirmed Last Taken Type Rosuvastatin Calcium [Crestor] 1 tab PO DAILY 09/09/13 10/05/18 Unknown History Lisinopril/Hydrochlorothiazide 20 mg DAILY 09/10/13 10/05/18 09/09/13 History [Zestoretic 20-12.5 mg] Travoprost [Travatan Z 0.004%] 1 drops DAILY 09/10/13 10/05/18 09/10/13 History one Aspirin [Aspirin TAB] 325 mg PO QDAY #30 tablet 11/05/17 10/05/18 Unknown Rx Active Meds: Active Medications Acetaminophen (Tylenol) 650 mg PO Q4H PRN PRN Reason: Headache Last Admin: 10/08/18 06:41 Dose: 650 mg Documented by: Aspirin (Aspirin) 325 mg PO QDAY [facility] Last Admin: 10/08/18 10:29 Dose: 325 mg Documented by: Atorvastatin Calcium (Lipitor) 40 mg PO QHS [facility] Last Admin: 10/07/18 21:30 Dose: 40 mg Documented by: Heparin Sodium (Porcine) (Heparin) 5,000 unit SUB-Q Q12HR [facility] Last Admin: 10/08/18 10:31 Dose: 5,000 unit Documented by: Hydrochlorothiazide (Hctz) 12.5 mg PO QDAY [facility] Last Admin: 10/08/18 10:28 Dose: 12.5 mg Documented by: Ceftriaxone Sodium (Rocephin/Ns 1 Gm/50 Ml) 1 gm in 50 mls @ 100 mls/hr IV Q24HR [facility]; Protocol Last Admin: 10/08/18 10:27 Dose: 100 mls/hr Documented by: Vancomycin HCl 750 mg/ Sodium (Chloride) 265 mls @ 166.667 mls/hr IV Q24H [facility] Lisinopril (Zestril) 20 mg PO QDAY [facility] Last Admin: 10/08/18 10:29 Dose: 20 mg Documented by: Morphine Sulfate (Morphine) 2 mg IV Q3H PRN PRN Reason: Pain, Moderate (4-6) Last Admin: 10/07/18 05:09 Dose: 2 mg Documented by: Nitroglycerin (Nitrostat) 0.4 mg SL .Q5MIN PRN PRN Reason: Chest Pain Nitroglycerin (Nitro-Bid 2%) 0.5 inch TP QIDNTG [facility]; Protocol Last Admin: 10/08/18 10:48 Dose: 0.5 inch Documented by: Ondansetron HCl (Zofran) 4 mg IV Q8H PRN PRN Reason: Nausea And Vomiting Oseltamivir Phosphate (Tamiflu) 75 mg PO BID [facility] Stop: 10/12/18 10:01 Last Admin: 10/08/18 10:29 Dose: 75 mg Documented by: Physical Examination - Physical exam Narrative exam: At the patient's right knee she is noted to have 1-2+ joint effusion there is no overlying redness or erythema she is slightly warm to touch active range of motion is limited due to pain ligaments appear stable distal neurovascular status is intact Plain x-rays of the right knee were reviewed by me show no evidence of fracture dislocation and she has minimal osteoarthritic changes Assessment and Plan Assessment right knee effusion with fever and increase white blood cell count rule out sepsis Plan -patient's knee was aspirated with return of cloudy yellowish fluid no villa pus was seen. No odor as well was sent for culture and sensitivity as well as cell count doubt knee sepsis at this point
[2018-10-08 12:55] LABS: Total Cells Counted 100 /mm3
--- NOTE | 2018-10-08 13:40 | Progress Note ---
Assessment and Plan Assessment and plan: Chest pain, Now resolved Stress test neg Fever. UA neg, CXR neg Obtain Blood cultures Hold off Antibiotcs If fever persists will start Antibiotics Hypertension. Monitor BP Hyperlipidemia History Interval history: No new issues overnight. Hospitalist Physical - Constitutional Vitals: Temp Pulse Resp BP Pulse Ox 98.5 F 81 18 109/57 95 10/08/18 11:22 10/08/18 11:22 10/08/18 11:22 10/08/18 11:22 10/08/18 11:22 General appearance: Present: no acute distress, well-nourished - EENT Eyes: Present: PERRL, EOM intact ENT: hearing intact, clear oral mucosa, dentition normal - Neck Neck: Present: supple, normal ROM - Respiratory Respiratory effort: normal Respiratory: bilateral: CTA - Cardiovascular Rhythm: regular Heart Sounds: Present: S1 & S2. Absent: gallop, rub - Extremities Extremities: no ischemia, No edema, Full ROM - Abdominal General gastrointestinal: soft, non-tender, non-distended, normal bowel sounds - Integumentary Integumentary: Present: clear, warm, dry - Neurologic Neurologic: CNII-XII intact, moves all extremities Results - Labs CBC & Chem 7: 10/05/18 01:12 10/07/18 06:17 Labs: Laboratory Last Values WBC 10.3 K/mm3 (4.5-11.0) 10/05/18 01:12 RBC 4.62 M/mm3 (3.65-5.03) 10/05/18 01:12 Hgb 13.6 gm/dl (10.1-14.3) 10/05/18 01:12 Hct 40.4 % (30.3-42.9) 10/05/18 01:12 MCV 87 fl (79-97) 10/05/18 01:12 MCH 30 pg (28-32) 10/05/18 01:12 MCHC 34 % (30-34) 10/05/18 01:12 RDW 12.6 % (13.2-15.2) L 10/05/18 01:12 Plt Count 244 K/mm3 (140-440) 10/05/18 01:12 Lymph % (Auto) 14.8 % (13.4-35.0) 10/05/18 01:12 [place] % (Auto) 7.0 % (0.0-7.3) 10/05/18 01:12 Eos % (Auto) 0.1 % (0.0-4.3) 10/05/18 01:12 Baso % (Auto) 0.2 % (0.0-1.8) 10/05/18 01:12 Lymph # 1.5 K/mm3 (1.2-5.4) 10/05/18 01:12 [place] # 0.7 K/mm3 (0.0-0.8) 10/05/18 01:12 Eos # 0.0 K/mm3 (0.0-0.4) 10/05/18 01:12 Baso # 0.0 K/mm3 (0.0-0.1) 10/05/18 01:12 Seg Neutrophils % 77.9 % (40.0-70.0) H 10/05/18 01:12 Seg Neutrophils # 8.0 K/mm3 (1.8-7.7) H 10/05/18 01:12 D-Dimer 693.81 ng/mlDDU (0-234) H 10/05/18 01:12 Sodium 141 mmol/L (137-145) 10/07/18 06:17 Potassium 3.4 mmol/L (3.6-5.0) L 10/07/18 06:17 Chloride 98.7 mmol/L (98-107) 10/07/18 06:17 Carbon Dioxide 26 mmol/L (22-30) 10/07/18 06:17 Anion Gap 20 mmol/L 10/07/18 06:17 BUN 7 mg/dL (7-17) 10/07/18 06:17 Creatinine 0.5 mg/dL (0.7-1.2) L 10/07/18 06:17 Estimated GFR > 60 ml/min 10/07/18 06:17 BUN/Creatinine Ratio 14 % 10/07/18 06:17 Glucose 130 mg/dL (65-100) H 10/07/18 06:17 Lactic Acid 0.90 mmol/L (0.7-2.0) 10/05/18 01:12 Uric Acid 3.3 mg/dL (3.5-7.6) L 10/07/18 17:12 Calcium 8.7 mg/dL (8.4-10.2) 10/07/18 06:17 Magnesium 2.20 mg/dL (1.7-2.3) 10/06/18 15:35 Total Bilirubin 0.70 mg/dL (0.1-1.2) 10/06/18 05:10 AST 32 units/L (5-40) 10/06/18 05:10 ALT 52 units/L (7-56) 10/06/18 05:10 Alkaline Phosphatase 94 units/L (35-129) 10/06/18 05:10 Total Creatine Kinase 162 units/L (30-135) H 10/05/18 13:23 CK-MB (CK-2) 2.7 ng/mL (0.0-4.0) 10/05/18 13:23 CK-MB (CK-2) Rel Index 1.6 (0-4) 10/05/18 13:23 Troponin T < 0.010 ng/mL (0.00-0.029) 10/05/18 13:23 C-Reactive Protein 12.80 mg/dL (0.00-1.30) H 10/07/18 17:12 Total Protein 6.9 g/dL (6.3-8.2) 10/06/18 05:10 Albumin 3.4 g/dL (3.9-5) L 10/06/18 05:10 Albumin/Globulin Ratio 1.0 % 10/06/18 05:10 TSH 0.591 mlU/mL (0.270-4.200) 10/05/18 01:12 Urine Color Yellow (Yellow) 10/05/18 01:03 Urine Turbidity Clear (Clear) 10/05/18 01:03 Urine pH 6.0 (5.0-7.0) 10/05/18 01:03 Ur Specific [place] 1.004 (1.003-1.030) 10/05/18 01:03 Urine Protein <15 mg/dl mg/dL (Negative) 10/05/18 01:03 Urine Glucose (UA) Neg mg/dL (Negative) 10/05/18 01:03 Urine Ketones 20 mg/dL (Negative) 10/05/18 01:03 Urine Blood Neg (Negative) 10/05/18 01:03 Urine Nitrite Neg (Negative) 10/05/18 01:03 Urine Bilirubin Neg (Negative) 10/05/18 01:03 Urine Urobilinogen < 2.0 mg/dL (<2.0) 10/05/18 01:03 Ur Leukocyte Esterase Neg (Negative) 10/05/18 01:03 Urine WBC (Auto) 1.0 /HPF (0.0-6.0) 10/05/18 01:03 Urine RBC (Auto) 1.0 /HPF (0.0-6.0) 10/05/18 01:03 Urine Mucus Few /HPF 10/05/18 01:03 Fluid Type Synovial 10/08/18 09:51 Fluid Color Yellow 10/08/18 09:51 Fluid Appearance Turbid 10/08/18 09:51 Fluid WBC 94560 /mm3 10/08/18 09:51 Fluid RBC 125 /mm3 10/08/18 09:51 Fluid Seg Neutrophils 82.0 % 10/08/18 09:51 Fluid Lymphocytes 4.0 % 10/08/18 09:51 Fluid Reactive Lymphs 0 % 10/08/18 09:51 Fluid Monocytes 14.0 % 10/08/18 09:51 Fluid Eosinophils 0 % 10/08/18 09:51 Fluid Basophils 0 % 10/08/18 09:51 Synovial Crystals Cppd crystals (NONE SEEN) 10/08/18 Unknown Hepatitis A IgM Ab Non-reactive (NonReactive) 10/07/18 17:12 Hep Bs Antigen Non-reactive (Negative) 10/07/18 17:12 Hep B Core IgM Ab Non-reactive (NonReactive) 10/07/18 17:12 Hepatitis C Antibody Non-reactive (NonReactive) 10/07/18 17:12 HIV 1&2 Antibody Rapid Non react (Non React) 10/08/18 11:49 HIV P24 Antigen Non react (Non React) 10/08/18 11:49 Blood Type B POSITIVE 10/05/18 01:12 Antibody Screen Negative 10/05/18 01:12 Nutrition/Malnutrition Assess - Dietary Evaluation Nutrition/Malnutrition Findings: Nutrition Notes Start: 10/06/18 16:51 Freq: Status: Active Protocol: Document 10/06/18 16:51 RM (Rec: 10/06/18 16:51 RM [id number]) Nutrition Notes Need for Assessment generated from: subassembler Initial or Follow up Brief Note Subjective/Other Information Screened for skin risk. [place] 21 points. Nutrition Intervention Revisit per MD consult or patient Sign Off request:
--- NOTE | 2018-10-08 13:46 | Progress Note ---
Assessment and Plan Assessment and plan: Sepsis. Etiology may be secondary to septic arthritis. UA negative. Blood cultures thus far negative. Follow-up influenza rapid antigen. ID has been consulted. Right knee pain/edema. Orthopedics was consulted and will perform arthrocentesis. Plain films revealed large effusion. Uric acid low CRP 12. Elevated LFTs. Ultrasound showed gallbladder absent and no ductal dilatation. Hepatitis panel negative. History Interval history: 63 y/o female w/o medical history admitted on 10/05/2018 due to 4-day history of intermittent fever, chills, intermittent chest tightness, malaise and 2-day history of right knee edema and tenderness: No new issues overnight. Hospitalist Physical - Constitutional Vitals: Temp Pulse Resp BP Pulse Ox 98.5 F 81 18 109/57 95 10/08/18 11:22 10/08/18 11:22 10/08/18 11:22 10/08/18 11:22 10/08/18 11:22 General appearance: Present: no acute distress, well-nourished - EENT Eyes: Present: PERRL, EOM intact ENT: hearing intact, clear oral mucosa, dentition normal - Neck Neck: Present: supple, normal ROM - Respiratory Respiratory effort: normal Respiratory: bilateral: CTA - Cardiovascular Rhythm: regular Heart Sounds: Present: S1 & S2. Absent: gallop, rub - Extremities Extremities: no ischemia, Full ROM Extremity abnormal: edema (right knee), erythema (right knee), tenderness (right knee) - Abdominal General gastrointestinal: soft, non-tender, non-distended, normal bowel sounds - Integumentary Integumentary: Present: clear, warm, dry - Neurologic Neurologic: CNII-XII intact, moves all extremities Results - Labs CBC & Chem 7: 10/05/18 01:12 10/07/18 06:17 Labs: Laboratory Last Values WBC 10.3 K/mm3 (4.5-11.0) 10/05/18 01:12 RBC 4.62 M/mm3 (3.65-5.03) 10/05/18 01:12 Hgb 13.6 gm/dl (10.1-14.3) 10/05/18 01:12 Hct 40.4 % (30.3-42.9) 10/05/18 01:12 MCV 87 fl (79-97) 10/05/18 01:12 MCH 30 pg (28-32) 10/05/18 01:12 MCHC 34 % (30-34) 10/05/18 01:12 RDW 12.6 % (13.2-15.2) L 10/05/18 01:12 Plt Count 244 K/mm3 (140-440) 10/05/18 01:12 Lymph % (Auto) 14.8 % (13.4-35.0) 10/05/18 01:12 [place] % (Auto) 7.0 % (0.0-7.3) 10/05/18 01:12 Eos % (Auto) 0.1 % (0.0-4.3) 10/05/18 01:12 Baso % (Auto) 0.2 % (0.0-1.8) 10/05/18 01:12 Lymph # 1.5 K/mm3 (1.2-5.4) 10/05/18 01:12 [place] # 0.7 K/mm3 (0.0-0.8) 10/05/18 01:12 Eos # 0.0 K/mm3 (0.0-0.4) 10/05/18 01:12 Baso # 0.0 K/mm3 (0.0-0.1) 10/05/18 01:12 Seg Neutrophils % 77.9 % (40.0-70.0) H 10/05/18 01:12 Seg Neutrophils # 8.0 K/mm3 (1.8-7.7) H 10/05/18 01:12 D-Dimer 693.81 ng/mlDDU (0-234) H 10/05/18 01:12 Sodium 141 mmol/L (137-145) 10/07/18 06:17 Potassium 3.4 mmol/L (3.6-5.0) L 10/07/18 06:17 Chloride 98.7 mmol/L (98-107) 10/07/18 06:17 Carbon Dioxide 26 mmol/L (22-30) 10/07/18 06:17 Anion Gap 20 mmol/L 10/07/18 06:17 BUN 7 mg/dL (7-17) 10/07/18 06:17 Creatinine 0.5 mg/dL (0.7-1.2) L 10/07/18 06:17 Estimated GFR > 60 ml/min 10/07/18 06:17 BUN/Creatinine Ratio 14 % 10/07/18 06:17 Glucose 130 mg/dL (65-100) H 10/07/18 06:17 Lactic Acid 0.90 mmol/L (0.7-2.0) 10/05/18 01:12 Uric Acid 3.3 mg/dL (3.5-7.6) L 10/07/18 17:12 Calcium 8.7 mg/dL (8.4-10.2) 10/07/18 06:17 Magnesium 2.20 mg/dL (1.7-2.3) 10/06/18 15:35 Total Bilirubin 0.70 mg/dL (0.1-1.2) 10/06/18 05:10 AST 32 units/L (5-40) 10/06/18 05:10 ALT 52 units/L (7-56) 10/06/18 05:10 Alkaline Phosphatase 94 units/L (35-129) 10/06/18 05:10 Total Creatine Kinase 162 units/L (30-135) H 10/05/18 13:23 CK-MB (CK-2) 2.7 ng/mL (0.0-4.0) 10/05/18 13:23 CK-MB (CK-2) Rel Index 1.6 (0-4) 10/05/18 13:23 Troponin T < 0.010 ng/mL (0.00-0.029) 10/05/18 13:23 C-Reactive Protein 12.80 mg/dL (0.00-1.30) H 10/07/18 17:12 Total Protein 6.9 g/dL (6.3-8.2) 10/06/18 05:10 Albumin 3.4 g/dL (3.9-5) L 10/06/18 05:10 Albumin/Globulin Ratio 1.0 % 10/06/18 05:10 TSH 0.591 mlU/mL (0.270-4.200) 10/05/18 01:12 Urine Color Yellow (Yellow) 10/05/18 01:03 Urine Turbidity Clear (Clear) 10/05/18 01:03 Urine pH 6.0 (5.0-7.0) 10/05/18 01:03 Ur Specific [place] 1.004 (1.003-1.030) 10/05/18 01:03 Urine Protein <15 mg/dl mg/dL (Negative) 10/05/18 01:03 Urine Glucose (UA) Neg mg/dL (Negative) 10/05/18 01:03 Urine Ketones 20 mg/dL (Negative) 10/05/18 01:03 Urine Blood Neg (Negative) 10/05/18 01:03 Urine Nitrite Neg (Negative) 10/05/18 01:03 Urine Bilirubin Neg (Negative) 10/05/18 01:03 Urine Urobilinogen < 2.0 mg/dL (<2.0) 10/05/18 01:03 Ur Leukocyte Esterase Neg (Negative) 10/05/18 01:03 Urine WBC (Auto) 1.0 /HPF (0.0-6.0) 10/05/18 01:03 Urine RBC (Auto) 1.0 /HPF (0.0-6.0) 10/05/18 01:03 Urine Mucus Few /HPF 10/05/18 01:03 Fluid Type Synovial 10/08/18 09:51 Fluid Color Yellow 10/08/18 09:51 Fluid Appearance Turbid 10/08/18 09:51 Fluid WBC 91898 /mm3 10/08/18 09:51 Fluid RBC 125 /mm3 10/08/18 09:51 Fluid Seg Neutrophils 82.0 % 10/08/18 09:51 Fluid Lymphocytes 4.0 % 10/08/18 09:51 Fluid Reactive Lymphs 0 % 10/08/18 09:51 Fluid Monocytes 14.0 % 10/08/18 09:51 Fluid Eosinophils 0 % 10/08/18 09:51 Fluid Basophils 0 % 10/08/18 09:51 Synovial Crystals Cppd crystals (NONE SEEN) 10/08/18 Unknown Hepatitis A IgM Ab Non-reactive (NonReactive) 10/07/18 17:12 Hep Bs Antigen Non-reactive (Negative) 10/07/18 17:12 Hep B Core IgM Ab Non-reactive (NonReactive) 10/07/18 17:12 Hepatitis C Antibody Non-reactive (NonReactive) 10/07/18 17:12 HIV 1&2 Antibody Rapid Non react (Non React) 10/08/18 11:49 HIV P24 Antigen Non react (Non React) 10/08/18 11:49 Blood Type B POSITIVE 10/05/18 01:12 Antibody Screen Negative 10/05/18 01:12 Nutrition/Malnutrition Assess - Dietary Evaluation Nutrition/Malnutrition Findings: Nutrition Notes Start: 10/06/18 16:51 Freq: Status: Active Protocol: Document 10/06/18 16:51 RM (Rec: 10/06/18 16:51 RM [id number]) 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 [place] 21 points. Nutrition Intervention Revisit per MD consult or patient Sign Off request:
--- NOTE | 2018-10-08 13:47 | Progress Note ---
Assessment and Plan Assessment and plan: Sepsis. Etiology may be secondary to septic arthritis. UA negative. Blood cultures thus far negative. Follow-up influenza rapid antigen. ID has been consulted. Right knee pain/edema. Orthopedics was consulted and has performed arthrocentesis. Plain films revealed large effusion. Uric acid low CRP 12. Follow-up synovial fluid examination. Elevated LFTs. Ultrasound showed gallbladder absent and no ductal dilatation. Hepatitis panel negative. History Interval history: 63 y/o female w/o medical history admitted on 10/05/2018 due to 4-day history of intermittent fever, chills, intermittent chest tightness, malaise and 2-day history of right knee edema and tenderness: No new issues overnight. Hospitalist Physical - Constitutional Vitals: Temp Pulse Resp BP Pulse Ox 98.5 F 81 18 109/57 95 10/08/18 11:22 10/08/18 11:22 10/08/18 11:22 10/08/18 11:22 10/08/18 11:22 General appearance: Present: no acute distress, well-nourished - EENT Eyes: Present: PERRL, EOM intact ENT: hearing intact, clear oral mucosa, dentition normal - Neck Neck: Present: supple, normal ROM - Respiratory Respiratory effort: normal Respiratory: bilateral: CTA - Cardiovascular Rhythm: regular Heart Sounds: Present: S1 & S2. Absent: gallop, rub - Extremities Extremities: no ischemia, Full ROM Extremity abnormal: edema (right knee), tenderness - Abdominal General gastrointestinal: soft, non-tender, non-distended, normal bowel sounds - Integumentary Integumentary: Present: clear, warm, dry - Neurologic Neurologic: CNII-XII intact, moves all extremities Results - Labs CBC & Chem 7: 10/05/18 01:12 10/07/18 06:17 Labs: Laboratory Last Values WBC 10.3 K/mm3 (4.5-11.0) 10/05/18 01:12 RBC 4.62 M/mm3 (3.65-5.03) 10/05/18 01:12 Hgb 13.6 gm/dl (10.1-14.3) 10/05/18 01:12 Hct 40.4 % (30.3-42.9) 10/05/18 01:12 MCV 87 fl (79-97) 10/05/18 01:12 MCH 30 pg (28-32) 10/05/18 01:12 MCHC 34 % (30-34) 10/05/18 01:12 RDW 12.6 % (13.2-15.2) L 10/05/18 01:12 Plt Count 244 K/mm3 (140-440) 10/05/18 01:12 Lymph % (Auto) 14.8 % (13.4-35.0) 10/05/18 01:12 [place] % (Auto) 7.0 % (0.0-7.3) 10/05/18 01:12 Eos % (Auto) 0.1 % (0.0-4.3) 10/05/18 01:12 Baso % (Auto) 0.2 % (0.0-1.8) 10/05/18 01:12 Lymph # 1.5 K/mm3 (1.2-5.4) 10/05/18 01:12 [place] # 0.7 K/mm3 (0.0-0.8) 10/05/18 01:12 Eos # 0.0 K/mm3 (0.0-0.4) 10/05/18 01:12 Baso # 0.0 K/mm3 (0.0-0.1) 10/05/18 01:12 Seg Neutrophils % 77.9 % (40.0-70.0) H 10/05/18 01:12 Seg Neutrophils # 8.0 K/mm3 (1.8-7.7) H 10/05/18 01:12 D-Dimer 693.81 ng/mlDDU (0-234) H 10/05/18 01:12 Sodium 141 mmol/L (137-145) 10/07/18 06:17 Potassium 3.4 mmol/L (3.6-5.0) L 10/07/18 06:17 Chloride 98.7 mmol/L (98-107) 10/07/18 06:17 Carbon Dioxide 26 mmol/L (22-30) 10/07/18 06:17 Anion Gap 20 mmol/L 10/07/18 06:17 BUN 7 mg/dL (7-17) 10/07/18 06:17 Creatinine 0.5 mg/dL (0.7-1.2) L 10/07/18 06:17 Estimated GFR > 60 ml/min 10/07/18 06:17 BUN/Creatinine Ratio 14 % 10/07/18 06:17 Glucose 130 mg/dL (65-100) H 10/07/18 06:17 Lactic Acid 0.90 mmol/L (0.7-2.0) 10/05/18 01:12 Uric Acid 3.3 mg/dL (3.5-7.6) L 10/07/18 17:12 Calcium 8.7 mg/dL (8.4-10.2) 10/07/18 06:17 Magnesium 2.20 mg/dL (1.7-2.3) 10/06/18 15:35 Total Bilirubin 0.70 mg/dL (0.1-1.2) 10/06/18 05:10 AST 32 units/L (5-40) 10/06/18 05:10 ALT 52 units/L (7-56) 10/06/18 05:10 Alkaline Phosphatase 94 units/L (35-129) 10/06/18 05:10 Total Creatine Kinase 162 units/L (30-135) H 10/05/18 13:23 CK-MB (CK-2) 2.7 ng/mL (0.0-4.0) 10/05/18 13:23 CK-MB (CK-2) Rel Index 1.6 (0-4) 10/05/18 13:23 Troponin T < 0.010 ng/mL (0.00-0.029) 10/05/18 13:23 C-Reactive Protein 12.80 mg/dL (0.00-1.30) H 10/07/18 17:12 Total Protein 6.9 g/dL (6.3-8.2) 10/06/18 05:10 Albumin 3.4 g/dL (3.9-5) L 10/06/18 05:10 Albumin/Globulin Ratio 1.0 % 10/06/18 05:10 TSH 0.591 mlU/mL (0.270-4.200) 10/05/18 01:12 Urine Color Yellow (Yellow) 10/05/18 01:03 Urine Turbidity Clear (Clear) 10/05/18 01:03 Urine pH 6.0 (5.0-7.0) 10/05/18 01:03 Ur Specific [place] 1.004 (1.003-1.030) 10/05/18 01:03 Urine Protein <15 mg/dl mg/dL (Negative) 10/05/18 01:03 Urine Glucose (UA) Neg mg/dL (Negative) 10/05/18 01:03 Urine Ketones 20 mg/dL (Negative) 10/05/18 01:03 Urine Blood Neg (Negative) 10/05/18 01:03 Urine Nitrite Neg (Negative) 10/05/18 01:03 Urine Bilirubin Neg (Negative) 10/05/18 01:03 Urine Urobilinogen < 2.0 mg/dL (<2.0) 10/05/18 01:03 Ur Leukocyte Esterase Neg (Negative) 10/05/18 01:03 Urine WBC (Auto) 1.0 /HPF (0.0-6.0) 10/05/18 01:03 Urine RBC (Auto) 1.0 /HPF (0.0-6.0) 10/05/18 01:03 Urine Mucus Few /HPF 10/05/18 01:03 Fluid Type Synovial 10/08/18 09:51 Fluid Color Yellow 10/08/18 09:51 Fluid Appearance Turbid 10/08/18 09:51 Fluid WBC 31893 /mm3 10/08/18 09:51 Fluid RBC 125 /mm3 10/08/18 09:51 Fluid Seg Neutrophils 82.0 % 10/08/18 09:51 Fluid Lymphocytes 4.0 % 10/08/18 09:51 Fluid Reactive Lymphs 0 % 10/08/18 09:51 Fluid Monocytes 14.0 % 10/08/18 09:51 Fluid Eosinophils 0 % 10/08/18 09:51 Fluid Basophils 0 % 10/08/18 09:51 Synovial Crystals Cppd crystals (NONE SEEN) 10/08/18 Unknown Hepatitis A IgM Ab Non-reactive (NonReactive) 10/07/18 17:12 Hep Bs Antigen Non-reactive (Negative) 10/07/18 17:12 Hep B Core IgM Ab Non-reactive (NonReactive) 10/07/18 17:12 Hepatitis C Antibody Non-reactive (NonReactive) 10/07/18 17:12 HIV 1&2 Antibody Rapid Non react (Non React) 10/08/18 11:49 HIV P24 Antigen Non react (Non React) 10/08/18 11:49 Blood Type B POSITIVE 10/05/18 01:12 Antibody Screen Negative 10/05/18 01:12 Nutrition/Malnutrition Assess - Dietary Evaluation Nutrition/Malnutrition Findings: Nutrition Notes Start: 10/06/18 16:51 Freq: Status: Active Protocol: Document 10/06/18 16:51 RM (Rec: 10/06/18 16:51 RM [id number]) 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 [place] 21 points. Nutrition Intervention Revisit per MD consult or patient Sign Off request:
[2018-10-08] MEDS ORDERED: VANCOMYCIN 750 MG in NACL 0.9% 250ML 250 ML IV SCH (17:00)
[2018-10-08] MEDS: TESSALON PERLES PO SCH (23:30)
[2018-10-09] MEDS: NITRO-BID 2% TP SCH ×4 (05:28→18:36)
[2018-10-09] MEDS: TESSALON PERLES PO SCH ×3 (05:28→22:03)
--- NOTE | 2018-10-09 11:05 | Progress Note ---
Assessment and Plan Assessment and plan: Sepsis. Etiology may be secondary to septic arthritis. UA negative. Blood cultures thus far negative. Follow-up influenza rapid antigen. ID has been consulted. Right knee pain/edema. Orthopedics was consulted and has performed arthrocentesis. Plain films revealed large effusion. Uric acid low CRP 12. Follow-up synovial fluid examination. Initial synovial cultures reveals many PMNs but no organisms/growth. Elevated LFTs. Ultrasound showed gallbladder absent and no ductal dilatation. Hepatitis panel negative. History Interval history: 63 y/o female w/o medical history admitted on 10/05/2018 due to 4-day history of intermittent fever, chills, intermittent chest tightness, malaise and 2-day history of right knee edema and tenderness. Patient is status post arthrocentesis on 10/08/18. No new issues overnight. Hospitalist Physical - Constitutional Vitals: Temp Pulse Resp BP Pulse Ox 99.2 F 79 20 133/65 95 10/09/18 07:34 10/09/18 07:34 10/09/18 07:34 10/09/18 07:34 10/09/18 07:34 General appearance: Present: no acute distress, well-nourished - EENT Eyes: Present: PERRL, EOM intact ENT: hearing intact, clear oral mucosa, dentition normal - Neck Neck: Present: supple, normal ROM - Respiratory Respiratory effort: normal Respiratory: bilateral: CTA - Cardiovascular Rhythm: regular Heart Sounds: Present: S1 & S2. Absent: gallop, rub - Extremities Extremities: no ischemia, No edema, Full ROM - Abdominal General gastrointestinal: soft, non-tender, non-distended, normal bowel sounds - Integumentary Integumentary: Present: clear, warm, dry - Neurologic Neurologic: CNII-XII intact, moves all extremities Results - Labs CBC & Chem 7: 10/05/18 01:12 10/07/18 06:17 Labs: Laboratory Last Values WBC 10.3 K/mm3 (4.5-11.0) 10/05/18 01:12 RBC 4.62 M/mm3 (3.65-5.03) 10/05/18 01:12 Hgb 13.6 gm/dl (10.1-14.3) 10/05/18 01:12 Hct 40.4 % (30.3-42.9) 10/05/18 01:12 MCV 87 fl (79-97) 10/05/18 01:12 MCH 30 pg (28-32) 10/05/18 01:12 MCHC 34 % (30-34) 10/05/18 01:12 RDW 12.6 % (13.2-15.2) L 10/05/18 01:12 Plt Count 244 K/mm3 (140-440) 10/05/18 01:12 Lymph % (Auto) 14.8 % (13.4-35.0) 10/05/18 01:12 [place] % (Auto) 7.0 % (0.0-7.3) 10/05/18 01:12 Eos % (Auto) 0.1 % (0.0-4.3) 10/05/18 01:12 Baso % (Auto) 0.2 % (0.0-1.8) 10/05/18 01:12 Lymph # 1.5 K/mm3 (1.2-5.4) 10/05/18 01:12 [place] # 0.7 K/mm3 (0.0-0.8) 10/05/18 01:12 Eos # 0.0 K/mm3 (0.0-0.4) 10/05/18 01:12 Baso # 0.0 K/mm3 (0.0-0.1) 10/05/18 01:12 Seg Neutrophils % 77.9 % (40.0-70.0) H 10/05/18 01:12 Seg Neutrophils # 8.0 K/mm3 (1.8-7.7) H 10/05/18 01:12 D-Dimer 693.81 ng/mlDDU (0-234) H 10/05/18 01:12 Sodium 141 mmol/L (137-145) 10/07/18 06:17 Potassium 3.4 mmol/L (3.6-5.0) L 10/07/18 06:17 Chloride 98.7 mmol/L (98-107) 10/07/18 06:17 Carbon Dioxide 26 mmol/L (22-30) 10/07/18 06:17 Anion Gap 20 mmol/L 10/07/18 06:17 BUN 7 mg/dL (7-17) 10/07/18 06:17 Creatinine 0.5 mg/dL (0.7-1.2) L 10/07/18 06:17 Estimated GFR > 60 ml/min 10/07/18 06:17 BUN/Creatinine Ratio 14 % 10/07/18 06:17 Glucose 130 mg/dL (65-100) H 10/07/18 06:17 Lactic Acid 0.90 mmol/L (0.7-2.0) 10/05/18 01:12 Uric Acid 3.3 mg/dL (3.5-7.6) L 10/07/18 17:12 Calcium 8.7 mg/dL (8.4-10.2) 10/07/18 06:17 Magnesium 2.20 mg/dL (1.7-2.3) 10/06/18 15:35 Total Bilirubin 0.70 mg/dL (0.1-1.2) 10/06/18 05:10 AST 32 units/L (5-40) 10/06/18 05:10 ALT 52 units/L (7-56) 10/06/18 05:10 Alkaline Phosphatase 94 units/L (35-129) 10/06/18 05:10 Total Creatine Kinase 162 units/L (30-135) H 10/05/18 13:23 CK-MB (CK-2) 2.7 ng/mL (0.0-4.0) 10/05/18 13:23 CK-MB (CK-2) Rel Index 1.6 (0-4) 10/05/18 13:23 Troponin T < 0.010 ng/mL (0.00-0.029) 10/05/18 13:23 C-Reactive Protein 12.80 mg/dL (0.00-1.30) H 10/07/18 17:12 Total Protein 6.9 g/dL (6.3-8.2) 10/06/18 05:10 Albumin 3.4 g/dL (3.9-5) L 10/06/18 05:10 Albumin/Globulin Ratio 1.0 % 10/06/18 05:10 TSH 0.591 mlU/mL (0.270-4.200) 10/05/18 01:12 Urine Color Yellow (Yellow) 10/05/18 01:03 Urine Turbidity Clear (Clear) 10/05/18 01:03 Urine pH 6.0 (5.0-7.0) 10/05/18 01:03 Ur Specific [place] 1.004 (1.003-1.030) 10/05/18 01:03 Urine Protein <15 mg/dl mg/dL (Negative) 10/05/18 01:03 Urine Glucose (UA) Neg mg/dL (Negative) 10/05/18 01:03 Urine Ketones 20 mg/dL (Negative) 10/05/18 01:03 Urine Blood Neg (Negative) 10/05/18 01:03 Urine Nitrite Neg (Negative) 10/05/18 01:03 Urine Bilirubin Neg (Negative) 10/05/18 01:03 Urine Urobilinogen < 2.0 mg/dL (<2.0) 10/05/18 01:03 Ur Leukocyte Esterase Neg (Negative) 10/05/18 01:03 Urine WBC (Auto) 1.0 /HPF (0.0-6.0) 10/05/18 01:03 Urine RBC (Auto) 1.0 /HPF (0.0-6.0) 10/05/18 01:03 Urine Mucus Few /HPF 10/05/18 01:03 Fluid Type Synovial 10/08/18 09:51 Fluid Color Yellow 10/08/18 09:51 Fluid Appearance Turbid 10/08/18 09:51 Fluid WBC 51813 /mm3 10/08/18 09:51 Fluid RBC 125 /mm3 10/08/18 09:51 Fluid Seg Neutrophils 82.0 % 10/08/18 09:51 Fluid Lymphocytes 4.0 % 10/08/18 09:51 Fluid Reactive Lymphs 0 % 10/08/18 09:51 Fluid Monocytes 14.0 % 10/08/18 09:51 Fluid Eosinophils 0 % 10/08/18 09:51 Fluid Basophils 0 % 10/08/18 09:51 Synovial Crystals Cppd crystals (NONE SEEN) 10/08/18 Unknown Hepatitis A IgM Ab Non-reactive (NonReactive) 10/07/18 17:12 Hep Bs Antigen Non-reactive (Negative) 10/07/18 17:12 Hep B Core IgM Ab Non-reactive (NonReactive) 10/07/18 17:12 Hepatitis C Antibody Non-reactive (NonReactive) 10/07/18 17:12 HIV 1&2 Antibody Rapid Non react (Non React) 10/08/18 11:49 HIV P24 Antigen Non react (Non React) 10/08/18 11:49 Blood Type B POSITIVE 10/05/18 01:12 Antibody Screen Negative 10/05/18 01:12 Nutrition/Malnutrition Assess - Dietary Evaluation Nutrition/Malnutrition Findings: Nutrition Notes Start: 10/06/18 16:51 Freq: Status: Active Protocol: Document 10/09/18 09:48 RD (Rec: 10/09/18 09:55 RD [id number]) Co-Sign 10/09/18 09:48 LP Nutrition Notes 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 [place] score of 21. Error. Nutrition Intervention Revisit per MD consult or patient Sign Off request:
[2018-10-09] MEDS: HCTZ PO SCH (11:14)
[2018-10-09] MEDS: ROCEPHIN/NS 1 GM/50 ML 1 GM/50 ML BAG IV SCH (11:14)
[2018-10-09] MEDS: ZESTRIL PO SCH (11:15)
[2018-10-09] MEDS: ASPIRIN PO SCH (11:16)
[2018-10-09] MEDS: TAMIFLU PO SCH (11:17)
[2018-10-09] MEDS: HEPARIN SUB-Q SCH ×2 (11:17→22:04)
--- NOTE | 2018-10-09 11:49 | Progress Note ---
Assessment and Plan Cultures: Blood culture 10/06/2018 no growth so far Urine culture 10/05/2018 <10 mixed Assessment: 63 y/o female w/o medical history admitted on 10/05/2018 due to 4-day history of intermittent fever, chills, intermittent chest tightness, malaise and 2-day history of right knee edema and tenderness: 1) Sepsis: Fever trending down. Likely right knee septic arthritis. Other possibilities influenza - UA negative. CTA negative for PE. CXR neg. Blood culture 11/01/2018 negative so far. Urine culture 10/05/2018 <10k. 2) Right knee edema and pain associated with fever: reviewed synovial fluid showing 35K WBCs with 82% Segs, Gram stain many PMNs, few mononuclears, no organism, crystalsPOSITIVE for calcium pyrophosphate crystals, likely consistent with Acute Pseudogout. Doubt septic arthritis. If synovial culture does not grow in 48h ok to consider glucocorticoid injection. Apply ice pack and rest. Discontnued antibiotics. - Right XR showed large effusion - CRP 12 - Uric acid low -Synovial fluid right knee - no growth thus far 3) Elevated LFTs: resolved; from sepsis or secondary to viral infection. Other cholecystitis (denies abdominal pain). Resolved. US showed GB absent no dilation. Viral hep panel non reactive. Recommendations: - follow-up blood cultures - check influenza rapid antigen - pending - Septic arthris ruled out , discontinued ceftriaxone and vancomycin - Positive for calcium pyrophosphate crystals, likely consistent with Acute Pseudogout. Doubt septic arthritis. If synovial culture does not grow in 48h ok to consider glucocorticoid injection. d/w Dr. Milo Cavazos, [facility] M: [phone] O:[phone] Subjective Date of service: 10/09/18 Principal diagnosis: fever Interval history: Patient seen and examined, Stated that her knee felt better today, +soreness. Objective - Exam Narrative Exam: Narrative Exam: General appearance: Alert in NAD, conversant, anxious Eyes: anicteric sclerae, moist conjunctivae; no lid-lag; PERRLA HENT: Atraumatic; oropharynx clear with moist mucous membranes and no mucosal ulcerations/no oral thrush; normal hard and soft palate. Normal external ears. Neck: Trachea midline; supple, no thyromegaly or lymphadenopathy Lungs: CTA, with normal respiratory effort and no intercostal retractions CV: RRR, no murmurs Abdomen: Soft, non-tender; no masses or hepatosplenomegaly Extremities: +right knee edema, + tenderness Skin: Normal temperature, turgor and texture; no rash, ulcers or subcutaneous nodules Psych: Appropriate affect, alert and oriented to person, place and time. Neuro: alert and oriented x 3. Moving all extermities - Constitutional Vitals: Vital Signs Temp Pulse Resp BP Pulse Ox 99.2 F 80 20 133/65 95 10/09/18 07:34 10/09/18 11:16 10/09/18 07:34 10/09/18 11:16 10/09/18 07:34 Temperature -Last 24 Hours Temperature 99.2 F Temperature 98.4 F Temperature 98.6 F Temperature 98.1 F Temperature 99.2 F - Labs CBC & Chem 7: 10/05/18 01:12 10/07/18 06:17
[2018-10-10] MEDS: TESSALON PERLES PO SCH (05:25)
[2018-10-10] MEDS: NITRO-BID 2% TP SCH ×2 (05:25→09:58)
[2018-10-10 06:21] LABS: Basophils % (Auto) 0.4 % (0.0-1.8); Eosinophils # (Auto) 0.1 K/mm3 (0.0-0.4); Hemoglobin 11.8 gm/dl (10.1-14.3); Lymphocytes # (Auto) 1.9 K/mm3 (1.2-5.4); Lymphocytes % (Auto) 29.1 % (13.4-35.0); Mean Corpuscular HGB Conc 34 % (30-34); Mean Corpuscular Volume 88 fl (79-97); Monocytes # (Auto) 0.6 K/mm3 (0.0-0.8); Monocytes % (Auto) 8.6 % (0.0-7.3); Platelet Count 356 K/mm3 (140-440); Red Cell Distribution Width 12.4 % (13.2-15.2)
[2018-10-10 06:42] LABS: BUN/Creatinine Ratio 18; Blood Urea Nitrogen 7 mg/dL (7-17); Hemolysis Index 9
--- NOTE | 2018-10-10 09:09 | Discharge Summary ---
Providers - Providers Date of Admission: 10/05/18 05:51 Date of discharge: 10/10/18 Attending physician: CHIQUI TERRY 10/07/18 10:31 Consult to Physician [CONS] Routine Comment: Consulting Provider: SKYLA BAILEY Physician Instructions: Reason For Exam: fever Consult to Physician [CONS] Routine Comment: Consulting Provider: ANY GERBER Physician Instructions: Reason For Exam: right knee effusion Primary care physician: MAUDE LYON Hospitalization Reason for admission: cp Condition: Stable Hospital course: 63 y/o female w/o medical history admitted on 10/05/2018 due to 4-day history of intermittent fever, chills, intermittent chest tightness, malaise and 2-day history of right knee edema and tenderness as well as substernal chest pain. Patient denies any recent falls or injury. She stays home. Denies sick contacts. She denies any headache, shortness of breath, palpitations, nausea, vomiting, diarrhea, dysuria, cough. No recent travel. Patient is originally from [place], came to [facility] in 1993. Denies tob, ETOH or drugs. In the ED, temp 99.9--> 100.1, HR 113, R 14, BP 157/73, O2 sat 98%. WBC 10.3. Hg 13.6. Plat 244. K 5.4. Creat 0.4. Lactate 0.9. AST 97. ALT 90. UA negative. CTA negative for PE. CXR neg. Blood culture 11/01/2018 negative. Urine culture 10/05/2018 <10k. Patient underwent evaluation for chest pain with stress thallium that was found to be negative. However, her fever persisted and therefore the patient was further evaluated with ID and orthopedics in consultation. Orthopedics performed knee arthrocentesis and patient was found to have Synovial fluid showing 35K WBCs with 82% Segs, Gram stain many PMNs, few mononuclears, no organism, crystals POSITIVE for calcium pyrophosphate crystals, likely consistent with Acute Pseudogout. Doubt septic arthritis. ID felt patient may need glucocorticoid injection. However, I spoke with orthopedics and they recommended anti- inflammatories and no steroids. The patient's fever resolved and thus she will be discharged home. Dedicated discharge time 32 minutes. Etiology of chest pain likely GERD. Disposition: TO HOME OR SELFCARE Time spent for discharge: 32 - Discharge Diagnoses (1) Pseudogout Status: Acute Core Measure Documentation - Palliative Care Palliative Care/ Comfort Measures: Not Applicable - Core Measures Any of the following diagnoses?: none Exam - Constitutional Vitals: Temp Pulse Resp BP Pulse Ox 98.9 F 76 18 147/69 95 10/10/18 08:29 10/10/18 08:29 10/10/18 08:29 10/10/18 08:29 10/10/18 08:29 General appearance: Present: no acute distress, well-nourished - EENT Eyes: Present: PERRL ENT: hearing intact, clear oral mucosa - Neck Neck: Present: supple, normal ROM - Respiratory Respiratory effort: normal Respiratory: bilateral: CTA - Cardiovascular Heart Sounds: Present: S1 & S2. Absent: rub, click - Extremities Extremities: pulses symmetrical, No edema Peripheral Pulses: within normal limits - Abdominal General gastrointestinal: Present: soft, non-tender, non-distended, normal bowel sounds Female genitourinary: Present: normal - Integumentary Integumentary: Present: clear, warm, dry - Musculoskeletal Musculoskeletal: gait normal, strength equal bilaterally - Psychiatric Psychiatric: appropriate mood/affect, intact judgment & insight - Neurologic Neurologic: CNII-XII intact, moves all extremities Plan Activity: no restrictions Weight Bearing Status: Weight Bear as Tolerated Diet: regular Follow up with: MAUDE LYON MD [Primary Care Provider] - 3-5 Days Prescriptions: Diclofenac EC [Voltaren] 25 mg PO Q8HR #21 tablet Pantoprazole [Protonix] 40 mg PO QDAY #30 tablet
[2018-10-10] MEDS: HEPARIN SUB-Q SCH (09:58)
[2018-10-10] MEDS: HCTZ PO SCH (09:59)
[2018-10-10] MEDS: ASPIRIN PO SCH (09:59)
[2018-10-10] MEDS: ZESTRIL PO SCH (09:59)
--- NOTE | 2018-10-10 10:54 | Progress Note ---
Assessment and Plan Cultures: Blood culture 10/06/2018 no growth so far Urine culture 10/05/2018 <10 mixed Assessment: 63 y/o female w/o medical history admitted on 10/05/2018 due to 4-day history of intermittent fever, chills, intermittent chest tightness, malaise and 2-day history of right knee edema and tenderness: 1) Sepsis: Fever trending down. Likely right knee septic arthritis. Other possibilities influenza - UA negative. CTA negative for PE. CXR neg. Blood culture 11/01/2018 negative so far. Urine culture 10/05/2018 <10k. 2) Right knee edema and pain associated with fever: reviewed synovial fluid showing 35K WBCs with 82% Segs, Gram stain many PMNs, few mononuclears, no organism, crystalsPOSITIVE for calcium pyrophosphate crystals, likely consistent with Acute Pseudogout. Doubt septic arthritis. If synovial culture does not grow in 48h ok to consider glucocorticoid injection. Apply ice pack and rest. Discontinued antibiotics. - Right XR showed large effusion - CRP 12 - Uric acid low -Synovial fluid right knee - no growth thus far 3) Elevated LFTs: resolved; from sepsis or secondary to viral infection. Other cholecystitis (denies abdominal pain). Resolved. US showed GB absent no dilation. Viral hep panel non reactive. Recommendations: - Septic arthris ruled out , no infectious process discontinued ceftriaxone and vancomycin - Positive for calcium pyrophosphate crystals, likely consistent with Acute Pseudogout. Doubt septic arthritis. If synovial culture does not grow in 48h ok to consider glucocorticoid injection. -continue to f/u cultures Dr. Stearns is field operations farm manager this weekend, , please call for questions. Katie Cavazos NP [facility] M: [phone] O:[phone] Subjective Date of service: 10/10/18 Principal diagnosis: fever Interval history: Patient seen and examined, Stated that her knee felt better today, minimal swelling. Nurses notes, labs and reports reviewed, discussed with patient. Objective - Exam Narrative Exam: Narrative Exam: General appearance: Alert in NAD, conversant, anxious Eyes: anicteric sclerae, moist conjunctivae; no lid-lag; PERRLA HENT: Atraumatic; oropharynx clear with moist mucous membranes and no mucosal ulcerations/no oral thrush; normal hard and soft palate. Normal external ears. Neck: Trachea midline; supple, no thyromegaly or lymphadenopathy Lungs: CTA, with normal respiratory effort and no intercostal retractions CV: RRR, no murmurs Abdomen: Soft, non-tender; no masses or hepatosplenomegaly Extremities: +right knee minimal swelling, denies tenderness Skin: Normal temperature, turgor and texture; no rash, ulcers or subcutaneous nodules Psych: Appropriate affect, alert and oriented to person, place and time. Neuro: alert and oriented x 3. Moving all extermities - Constitutional Vitals: Vital Signs Temp Pulse Resp BP Pulse Ox 98.9 F 76 18 147/69 95 10/10/18 08:29 10/10/18 08:29 10/10/18 08:29 10/10/18 08:29 10/10/18 08:29 Temperature -Last 24 Hours Temperature 98.9 F Temperature 98.2 F Temperature 98.3 F Temperature 98.4 F Temperature 97.9 F Temperature 99.1 F - Labs CBC & Chem 7: 10/10/18 05:23 10/10/18 05:23 Labs: Abnormal lab results 10/10/18 10/10/18 Range/Units 05:23 05:23 RDW 12.4 L (13.2-15.2) % [place] % (Auto) 8.6 H (0.0-7.3) % Potassium 3.4 L (3.6-5.0) mmol/L Creatinine 0.4 L (0.7-1.2) mg/dL
[2018-10-10 11:53] VITALS: BP 148/68
== END 2018-10-10 14:00 | disposition home or self-care (01) | DRG 872 ==
LOC: ED 00:37 → SUATTDRO 00:37 → 4A 05:51
PROVIDERS: ADMIT Internal Medicine; ATTEND Hospitalist
PROC: 0S9C3ZZ Drainage of Right Knee Joint, Percutaneous Approach (ICD-10-PCS; principal; 2018-10-08)
DX: A41.9 Sepsis, unspecified organism (principal); E87.5 Hyperkalemia; K81.9 Cholecystitis, unspecified; M25.461 Effusion, right knee; E78.00 Pure hypercholesterolemia, unspecified; I10 Essential (primary) hypertension; E78.5 Hyperlipidemia, unspecified; K21.9 Gastro-esophageal reflux disease without esophagitis; M11.261 Other chondrocalcinosis, right knee; Z90.49 Acquired absence of other specified parts of digestive tract; Z79.899 Other long term (current) drug therapy
CPT/HCPCS: 36415; 71046; 71275; 76705; 78452; 80048; 80053; 80074; 81001; 82140; 82550; 82553; 83735; 84443; 84484; 84550; 85025; 85048; 85379; 86140; 86665; 86850; 86900; 86901; 87040; 87086; 87116; 87497; 87806; 89051; 93005; 93010; 93017; G0378; A9270-GY; A9502; J0696; J1644; J2270; J2785; J3370; J3480; J7030; J7040; J7050; Q9967

== ENCOUNTER 2019-09-23 13:39 | Emergency (ER) | payer MEDICARE ==
[2019-09-23 13:49] VITALS: BP 130/80
--- NOTE | 2019-09-23 14:13 | Event Note ---
ED Screening Note Date of service: 09/23/19 Time: 14:12 ED Screening Note: 64 y o f presents with head lac and heda pain s/p trip and fall down steps today This initial assessment/diagnostic orders/clinical plan/treatment(s) is/are subject to change based on patients health status, clinical progression and re- assessment by fellow clinical providers in the ED. Further treatment and workup at subsequent clinical providers discretion. Patient/guardian urged not to elope from the ED as their condition may be serious if not clinically assessed and managed. Initial orders include: CT scan lac repair Acc eval
--- NOTE | 2019-09-23 15:58 | Cat Scan Report ---
CT HEAD WITHOUT CONTRAST INDICATION / CLINICAL INFORMATION: HEAD INJURY/LACERATION. TECHNIQUE: Axial imaging performed from the skull apex through the skull base without the use of cont rast. Sagittal and coronal reformatted images. All CT scans at this location are performed using CT dose reduction for ALARA by means of automated exposure control. COMPARISON: 11/04/2017 FINDINGS: CEREBRAL PARENCHYMA: No significant abnormality. No acute territorial infarct. HEMORRHAGE: None. EXTRA-AXIAL SPACES: Normal in size and morphology for the patient's age. VENTRICULAR SYSTEM: Normal in size and morphology for the patient's age. MIDLINE SHIFT OR HERNIATION: None. CEREBELLUM / BRAINSTEM: No significant abnormality. CALVARIUM: No significant abnormality. ORBITS: Normal as visualized. PARANASAL SINUSES / MASTOID AIR CELLS: Normal as visualized. SOFT TISSUES of HEAD: Linear laceration is noted in the right frontal soft tissues. No radiopaque for eign body. ADDITIONAL FINDINGS: None. IMPRESSION: No acute intracranial abnormality. Right frontal soft tissue laceration. Signer Name: Keith Hemphill Jr, MD Signed: 09/23/2019 3:54 PM Workstation Name: [id number]
--- NOTE | 2019-09-23 18:56 | Emergency Department Report ---
ED Fall HPI - General Chief Complaint: Laceration/Recheck/Suture Stated Complaint: LACERATION TO HEAD Time Seen by Provider: 09/23/19 18:33 Source: patient, family Mode of arrival: Ambulatory - History of Present Illness Initial Comments: This is a 64-year-old female here via ambulance. Patient states brought her to the urgent care and urgent care called ambulance sent patient here due to facial laceration. Has been reported that patient fell and hit her forehead on medical railing. He says that patient stepped off a step and tripped and hit her head. Reports follows accidental. Denies patient's without call and supervision or drug abuse. Denies any blood thinners. History of high cholesterol and high blood pressure. Pain around the laceration site is 6 out of 10 and feels sore. Worse with touch. No medication taken prior to coming to the emergency room. Denies any loss of consciousness and house been verified the patient did not lose any consciousness after falling. Denies any dizziness, blurred vision, nausea or vomiting. Denies any neck pain or stiffness. Denies any back pain. MD Complaint: fall -: This afternoon Fall From: down stairs (#) (3 steps) When Fall Occurred: 1-3 hours [employer]OWER [employer]INE[employer] Fall Witnessed: yes, by family () Place Fall Occurred: home Loss of Consciousness: none Prolonged Down Time?: no Symptoms Prior to Fall: other (laceration) Location: face Severity: moderate Severity scale (0 -10): 6 Quality: other (sore) Context: tripped/slipped Associated Symptoms: denies: headache, neck pain, numbness, weakness, chest paint, shortness of breath, abdominal pain, hematuria, lightheaded, vertigo, confusion - Related Data Home Medications Medication Instructions Recorded Confirmed Last Taken Rosuvastatin Calcium [Crestor] 1 tab PO DAILY 09/09/13 10/05/18 Unknown Lisinopril/Hydrochlorothiazide 20 mg DAILY 09/10/13 10/05/18 09/09/13 [Zestoretic 20-12.5 mg] Travoprost [Travatan Z 0.004%] 1 drops DAILY 09/10/13 10/05/18 09/10/13 one Previous Rx's Medication Instructions Recorded Last Taken Type Aspirin 325 mg PO QDAY #30 tablet 11/05/17 Unknown Rx Diclofenac EC [Voltaren] 25 mg PO Q8HR #21 tablet 10/10/18 Unknown Rx Pantoprazole [Protonix] 40 mg PO QDAY #30 tablet 10/10/18 Unknown Rx Acetaminophen [Tylenol] 500 mg PO Q8H PRN #10 tablet 09/23/19 Unknown Rx cephALEXin [Keflex] 500 mg PO Q8HR 5 Days #15 cap 09/23/19 Unknown Rx Allergies Allergy/AdvReac Type Severity Reaction Status Date / Time No Known Allergies Allergy Unverified 09/09/13 16:03 ED Review of Systems ROS: Stated complaint: LACERATION TO HEAD Other details as noted in HPI Constitutional: denies: fever ENT: denies: ear pain Respiratory: denies: cough, shortness of breath, wheezing Cardiovascular: denies: chest pain, palpitations Gastrointestinal: denies: nausea, vomiting Musculoskeletal: denies: back pain, joint swelling, arthralgia, myalgia Skin: denies: rash Neurological: headache (around forehead at laceration site). denies: numbness, paresthesias ED Past Medical Hx - Past Medical History Previous Medical History?: Yes Hx Hypertension: Yes Hx Congestive Heart Failure: No Hx Diabetes: No Hx Asthma: No Hx COPD: No Additional medical history: Hypercholesterolemia - Surgical History Past Surgical History?: Yes Hx Cholecystectomy: Yes Additional Surgical History: Lumbar disc surgery - Family History Family history: no significant - Social History Smoking Status: Never Smoker Substance Use Type: None - Medications Home Medications: Home Medications Medication Instructions Recorded Confirmed Last Taken Type Rosuvastatin Calcium [Crestor] 1 tab PO DAILY 09/09/13 10/05/18 Unknown History Lisinopril/Hydrochlorothiazide 20 mg DAILY 09/10/13 10/05/18 09/09/13 History [Zestoretic 20-12.5 mg] Travoprost [Travatan Z 0.004%] 1 drops DAILY 09/10/13 10/05/18 09/10/13 History one Aspirin 325 mg PO QDAY #30 tablet 11/05/17 10/05/18 Unknown Rx Diclofenac EC [Voltaren] 25 mg PO Q8HR #21 tablet 10/10/18 Unknown Rx Pantoprazole [Protonix] 40 mg PO QDAY #30 tablet 10/10/18 Unknown Rx Acetaminophen [Tylenol] 500 mg PO Q8H PRN #10 tablet 09/23/19 Unknown Rx cephALEXin [Keflex] 500 mg PO Q8HR 5 Days #15 cap 09/23/19 Unknown Rx ED Physical Exam - General Limitations: No Limitations General appearance: alert, in no apparent distress - Head Head exam: Present: other (forehead laceration) - Expanded Head Exam Expanded Head exam: Present: laceration. Absent: abrasion, contusion, hematoma, racoon eyes, harmon's sign, general tenderness, tenderness of temporal artery, CSF rhinorrhea, CSF otorrhea - Eye Eye exam: Present: normal appearance, PERRL, EOMI. Absent: nystagmus Pupils: Present: normal accommodation - ENT ENT exam: Present: normal exam - Neck Neck exam: Present: normal inspection, full ROM. Absent: tenderness, lymphadenopathy - Respiratory Respiratory exam: Present: normal lung sounds bilaterally. Absent: respiratory distress, chest wall tenderness - Cardiovascular Cardiovascular Exam: Present: regular rate, normal rhythm, normal heart sounds - GI/Abdominal GI/Abdominal exam: Present: soft, normal bowel sounds. Absent: distended, tenderness - Extremities Exam Extremities exam: Present: normal inspection, full ROM, normal capillary refill, other (No cce. + 2 pulses in all extremities, no neurovascular compromise). Absent: tenderness, pedal edema, joint swelling, calf tenderness - Back Exam Back exam: Present: normal inspection, full ROM, other (Ambulates without any difficulties). Absent: tenderness, CVA tenderness (R), CVA tenderness (L), muscle spasm, paraspinal tenderness, vertebral tenderness, rash noted - Neurological Exam Neurological exam: Present: alert, oriented X3, normal gait, reflexes normal. Absent: motor sensory deficit - Expanded Neurological Exam Expanded Neurological exam: Absent: innattentive, memory loss-remote event, memory loss- recent event, ataxia, receptive aphasia, expressive aphasia, total aphasia, tremor, protecting the airway Patient oriented to: Present: person, place, time Speech: Present: fluid speech Cranial nerves: EOM's Intact: Normal, Gag Reflex: Normal, Nystagmus: Normal, Facial Sensation: Normal Cerebellar function: Romberg: Normal Upper motor neuron: Pronator Drift: Normal Sensory exam: Upper Extremity Light Touch: Normal, Upper Extremity Temperature: Normal, Lower Extremity Light Touch: Normal, Lower Extremity Temperature: Normal Motor strength exam: RUE: 5, LUE: 5, RLE: 5, LLE: 5 Best Eye Response (Nat): (4) open spontaneously Best Motor Response ([place]): (6) obeys commands Best Verbal Response (Nat): (5) oriented [place] Total: 15 - Psychiatric Psychiatric exam: Present: normal affect, normal mood - Skin Skin exam: Present: warm, dry, intact, other (Laceration forehead) ED Course Vital Signs 09/23/19 09/23/19 13:48 20:45 Pulse Rate 85 78 Respiratory 18 16 Rate Blood Pressure 130/80 [Right] O2 Sat by Pulse 99 98 Oximetry - Reevaluation(s) Reevaluation #1: 09/23/19 20:20 Receive Tylenol 3 one tablet by mouth emergency room relief pain around the laceration site and forehead. Boostrix given to update tetanus. Please see procedure note for details and laceration repair - Laceration /Wound Repair Head Wound Location: head (mid forehead) Wound Length (cm): 5 (x0.2) Wound's Depth, Shape: into muscle, irregular Wound Explored: clean Irrigated w/ Saline (ccs): 100 Betadine Prep?: Yes Anesthesia: 0.5% Sensorcaine (Marcaine) Volume Anesthetic (ccs): 3 Wound Debrided: moderate Wound Repaired With: sutures Suture Size/Type: 4:0 (Vicryl) Number of Sutures: 22 Layer Closure?: Yes Deep Layer Suture Size/Type: 5:0 (Vicryl) Number Deep Layer Sutures: 6 Sterile Dressing Applied?: Yes ED Medical Decision Making - Lab Data Lab Results 09/23/19 09/23/19 Range/Units 19:11 19:38 Urine Opiates Screen Presumptive negative Urine Methadone Screen Presumptive negative Ur Barbiturates Screen Presumptive negative Ur Phencyclidine Scrn Presumptive negative Ur Amphetamines Screen Presumptive negative U Benzodiazepines Scrn Presumptive negative Urine Cocaine Screen Presumptive negative U Marijuana (THC) Screen Presumptive negative Drugs of Abuse Note Disclamer Plasma/Serum Alcohol < 0.01 (0-0.07) % - Radiology Data Radiology results: report reviewed The skin of the head and brain without contrast dictated by radiologist and report reviewed by myself. Please see details below Findings [facility] [address] [place] [address] Cat Scan Report Signed Patient: SHEY ARDON MR#: [id number] : 1955 Acct:[id number] Age/Sex: 64 / F ADM Date: 09/23/19 Loc: ED Attending Dr: Ordering Physician: MICHELLE CHANDLER Date of Service: 09/23/19 Procedure(s): CT head/brain wo con Accession Number(s): [id number] cc: MICHELLE CHANDLER CT HEAD WITHOUT CONTRAST INDICATION / CLINICAL INFORMATION: HEAD INJURY/LACERATION. TECHNIQUE: Axial imaging performed from the skull apex through the skull base without the use of contrast. Sagittal and coronal reformatted images. All CT scans at this location are performed using CT dose reduction for ALARA by means of automated exposure control. COMPARISON: 11/04/2017 FINDINGS: CEREBRAL PARENCHYMA: No significant abnormality. No acute territorial infarct. HEMORRHAGE: None. EXTRA-AXIAL SPACES: Normal in size and morphology for the patient's age. VENTRICULAR SYSTEM: Normal in size and morphology for the patient's age. MIDLINE SHIFT OR HERNIATION: None. CEREBELLUM / BRAINSTEM: No significant abnormality. CALVARIUM: No significant abnormality. ORBITS: Normal as visualized. PARANASAL SINUSES / MASTOID AIR CELLS: Normal as visualized. SOFT TISSUES of HEAD: Linear laceration is noted in the right frontal soft tissues. No radiopaque foreign body. ADDITIONAL FINDINGS: None. IMPRESSION: No acute intracranial abnormality. Right frontal soft tissue laceration. Signer Name: Keith Hemphill Jr, MD Signed: 09/23/2019 3:54 PM Workstation Name: [id number] Transcribed By: TTR Dictated By: KEITH HEMPHILL JR, MD Electronically Authenticated By: KEITH HEMPHILL JR, MD Signed Date/Time: 09/23/19 1554 DD/ 1553 TD/TT: - Medical Decision Making 64-year-old female here status post accidental fall. Patient reports that she has pain localized to the laceration site at forehead. Physical findings for normal exam to include neurological exam except patient has laceration to forehead. Laceration repaired under sterile procedure. Please refer to procedure note for details. Given pain medication. Stable in no acute distress. CT scan of the head without showed no acute intracranial . Laceration to forehead seen and CT scan as well as no other extracranial abnormalities. Patient given details and CT scan, diagnosis and treatment plan and discharged home with her in stable condition with prescription for Tylenol OTC and Keflex. She does not primary care physician and was instructed to follow-up with her primary care physician. She voiced understanding discharge instructions. - Differential Diagnosis ICH vs ECH abnorm, substance abuse intoxication,simple head laceration Critical care attestation.: If time is entered above; I have spent that time in minutes in the direct care of this critically ill patient, excluding procedure time. ED Disposition Clinical Impression: Laceration of forehead without complication Qualifiers: Encounter type: initial encounter Qualified Code(s): S01.81XA - Laceration without foreign body of other part of head, initial encounter Accidental fall Qualifiers: Encounter type: initial encounter Qualified Code(s): W19.XXXA - Unspecified fall, initial encounter Disposition: TO HOME OR SELFCARE Is pt being admited?: No Does the pt Need Aspirin: No Condition: Stable Instructions: Suture Care (ED), Laceration (ED), Fall Prevention for Older Gordo lts (ED), Absorbable Suture Care (ED) Additional Instructions: Keep affected ear clean and dry Primary care physician in one to 2 days If he develops headache, nausea, vomiting, dizziness or blurred vision lead generation representative emergency room CHERYL See Discharge instructions suture care and laceration Take Tylenol plain for pain and antibiotic as prescribed Prescriptions: Acetaminophen [Tylenol] 500 mg PO Q8H PRN #10 tablet PRN Reason: Headache cephALEXin [Keflex] 500 mg PO Q8HR 5 Days #15 cap Referrals: PRIMARY CAREMD [Primary Care Provider] - 09/24/19 Forms: Accompanied Note, Work/School Release Form(ED)
[2019-09-23] MEDS ORDERED: ACETAMINOPHEN W/CODEINE 300-30 MG TAB PO ONE (19:00)
[2019-09-23] MEDS ORDERED: BUPIVACAINE/PF (0.5%) 5 MG/1 ML 10 ML VIAL INFILTRATI ONE (19:07)
[2019-09-23] MEDS ORDERED: TETANUS,DIPH,PERTUSS(ACELL) VACCINE 0.5 ML SYRINGE IM ONE (19:07)
[2019-09-23 20:03] LABS: Amphetamine Screen,Urine PRESUMPTIVE NEGATIVE; Benzodiazepines Screen,Urine PRESUMPTIVE NEGATIVE; Cannabinoid Screen,Urine PRESUMPTIVE NEGATIVE; Cocaine Screen,Urine PRESUMPTIVE NEGATIVE; Methadone Screen,Urine PRESUMPTIVE NEGATIVE; Opiate Screen,Urine PRESUMPTIVE NEGATIVE
== END 2019-09-23 20:45 | disposition home or self-care (01) ==
LOC: ED 13:39
DX: S01.81XA Laceration without foreign body of other part of head, initial encounter (principal); I10 Essential (primary) hypertension; E78.00 Pure hypercholesterolemia, unspecified; Z90.49 Acquired absence of other specified parts of digestive tract; Z79.899 Other long term (current) drug therapy; W10.9XXA Fall (on) (from) unspecified stairs and steps, initial encounter; Y93.89 Activity, other specified; Y92.89 Other specified places as the place of occurrence of the external cause; Y99.8 Other external cause status
CPT/HCPCS: 36415; 70450; 80307; 80320; 90471; 90715; G0480